=== PATIENT | male | born 1970 | race Caucasian/White ===

== ENCOUNTER 2016-07-03 13:02 | Emergency (ER) | payer MEDICAID ==
[~2016-07-03] VITALS: Ht 193 cm; Wt 126.2 kg
[~2016-07-03 13:02] MED LIST: ALOG6.25 PO; AMLO10TA2 PO; ASPI-621 PO; ATOR10TA9 PO; CLOP75TA22 PO; GLIP5TAB10 PO; IBUP-1222 PO; ISOS30TA; ISOS40TA11 PO; ISOS60TA36 PO; LISI1TAB3 PO; LISI1TAB5 PO; LISI40TA PO; METF1000 PO; METF500T4 PO; METO25TA35 PO; METO50TA3 PO; METO50TA82 PO; NITR0.4T8 SL; RANO500T2 PO
[2016-07-03] MEDS ORDERED: SODIUM CHLORIDE 0.9% 1,000ML IVBOLUS ONE (13:30)
[2016-07-03] MEDS ORDERED: ASPIRIN 81 MG TABLET CHEW PO ONE (13:30)
[2016-07-03] MEDS ORDERED: SODIUM CHLORIDE FLUSH 10ML SYR IVF ONE (13:30)
[2016-07-03 13:44] LABS: HEMOGLOBIN 15.4 g/dL (13.7-18.0)
[2016-07-03 13:56] LABS: BLOOD UREA NITROGEN 11 mg/dL (7-18)
[2016-07-03 14:06] LABS: IS PT STATUS REG ER OR PRE ER? YES
[2016-07-03 15:38] VITALS: BP 125/72
== END 2016-07-03 15:41 | disposition home or self-care (01) ==
LOC: ED 15:35
DX: R07.89 Other chest pain (principal); E11.65 Type 2 diabetes mellitus with hyperglycemia; I10 Essential (primary) hypertension; I25.110 Atherosclerotic heart disease of native coronary artery with unstable angina pectoris; Z95.5 Presence of coronary angioplasty implant and graft; Z90.49 Acquired absence of other specified parts of digestive tract
CPT/HCPCS: 36415; 71010; 80048; 82040; 83880; 84484; 85025; 93005

== ENCOUNTER 2016-08-01 13:56 | Emergency (ER) | payer MEDICAID ==
[~2016-08-01] VITALS: Ht 193 cm; Wt 131.3 kg
[2016-08-01] MEDS ORDERED: SODIUM CHLORIDE 0.9% 1,000 ML IV ONE (14:17)
[2016-08-01] MEDS ORDERED: SODIUM CHLORIDE 0.9% 1,000ML IVBOLUS ONE (14:30)
[2016-08-01] MEDS ORDERED: METOCLOPRAMIDE 5 MG/ML, 2ML IVPush ONE (14:30)
[2016-08-01] MEDS ORDERED: SODIUM CHLORIDE FLUSH 10ML SYR IVF ONE (14:30)
[2016-08-01] MEDS ORDERED: DIPHENHYDRAMINE 50 MG/ML, 1ML IVPush ONE (14:30)
[2016-08-01] MEDS ORDERED: KETOROLAC 30 MG/1 ML IVPush ONE (14:30)
[2016-08-01 15:03] LABS: ASPARTATE AMINO TRANSFERASE 17 U/L (15-37); BLOOD UREA NITROGEN 11 mg/dL (7-18)
[2016-08-01] MEDS ORDERED: DIPHENHYDRAMINE 50 MG/ML, 1ML ONE (15:42)
[2016-08-01] MEDS ORDERED: KETOROLAC 30 MG/1 ML ONE (15:42)
[2016-08-01] MEDS ORDERED: METOCLOPRAMIDE 5 MG/ML, 2ML ONE (15:42)
[2016-08-01 18:55] VITALS: BP 121/69
== END 2016-08-01 18:57 | disposition home or self-care (01) ==
LOC: ED 18:45
DX: G43.C1 Periodic headache syndromes in child or adult, intractable (principal); I10 Essential (primary) hypertension; E11.9 Type 2 diabetes mellitus without complications; Z90.49 Acquired absence of other specified parts of digestive tract; Z90.89 Acquired absence of other organs
CPT/HCPCS: 36415; 70450; 80053; 85025; 96361; 96374; 96375; 99285; J1200; J1885; J2765; J7030

== ENCOUNTER 2016-08-30 10:12 | Emergency (ER) | payer MEDICAID ==
[~2016-08-30] VITALS: Ht 193 cm; Wt 130.6 kg
[2016-08-30] MEDS ORDERED: LABETALOL 5MG/ML, 20ML ONE (11:16)
[2016-08-30] MEDS ORDERED: LABETALOL 5MG/ML, 20ML IVPush ONE (11:30)
[2016-08-30] MEDS ORDERED: SODIUM CHLORIDE FLUSH 10ML SYR IVF ONE (11:30)
[2016-08-30 12:10] LABS: BLOOD UREA NITROGEN 5 mg/dL (7-18)
[2016-08-30 12:14] LABS: IS PT STATUS REG ER OR PRE ER? YES
[2016-08-30] MEDS ORDERED: KETOROLAC 30 MG/1 ML ONE (14:13)
[2016-08-30] MEDS ORDERED: KETOROLAC 30 MG/1 ML IVPush ONE (14:30)
[2016-08-30 15:08] VITALS: BP 153/89
== END 2016-08-30 15:10 | disposition home or self-care (01) ==
LOC: ED 15:04
DX: R07.89 Other chest pain (principal); E11.9 Type 2 diabetes mellitus without complications; I11.9 Hypertensive heart disease without heart failure; G43.909 Migraine, unspecified, not intractable, without status migrainosus; I25.10 Atherosclerotic heart disease of native coronary artery without angina pectoris; Z90.49 Acquired absence of other specified parts of digestive tract; Z95.5 Presence of coronary angioplasty implant and graft; Z88.0 Allergy status to penicillin; Z88.8 Allergy status to other drugs, medicaments and biological substances
CPT/HCPCS: 36415; 71010; 80048; 82040; 84484; 85025; 85610; 85730; 93005; 96374; 96375; 99285; J1885

== ENCOUNTER 2016-10-17 20:04 | Emergency (ER) | payer MEDICAID ==
[~2016-10-17] VITALS: Ht 193 cm; Wt 126.9 kg
[2016-10-17 21:12] LABS: ASPARTATE AMINO TRANSFERASE 20 U/L (15-37); BLOOD UREA NITROGEN 14 mg/dL (7-18)
[2016-10-17 21:17] LABS: IS PT STATUS REG ER OR PRE ER? YES
[2016-10-17] MEDS ORDERED: ONDANSETRON ODT 8 MG PO ONE (21:30)
[2016-10-17 22:02] VITALS: BP 146/71
== END 2016-10-17 22:06 | disposition home or self-care (01) ==
LOC: ED 21:58
DX: R07.89 Other chest pain (principal); R00.0 Tachycardia, unspecified; E11.65 Type 2 diabetes mellitus with hyperglycemia; I10 Essential (primary) hypertension; I25.10 Atherosclerotic heart disease of native coronary artery without angina pectoris; Z90.49 Acquired absence of other specified parts of digestive tract; Z95.5 Presence of coronary angioplasty implant and graft
CPT/HCPCS: 36415; 71010; 80053; 83690; 84484; 85025; 93005; 99285; Q0162

== ENCOUNTER 2017-01-18 18:19 | Inpatient (IN) | payer MEDICAID ==
[~2017-01-18] VITALS: Ht 193 cm; Wt 127.4 kg
[~2017-01-18 18:19] MED LIST changes: -CLOP75TA22 PO; +CLOP75TA52 PO; +NITR0.4T28 SL; -NITR0.4T8 SL
[2017-01-18] MEDS ORDERED: ASPIRIN 81 MG TABLET CHEW ONE (18:43)
[2017-01-18 18:58] LABS: HEMATOCRIT 47.5 % (39.2-51.8); HEMOGLOBIN 15.8 g/dL (13.7-18.0); WHITE BLOOD COUNT 10.3 x10^3/uL (3.4-10)
[2017-01-18] MEDS ORDERED: ASPIRIN 81 MG TABLET CHEW PO ONE (19:00)
[2017-01-18 19:08] LABS: BLOOD UREA NITROGEN 15 mg/dL (7-18)
[2017-01-18 19:13] LABS: IS PT STATUS REG ER OR PRE ER? YES
[2017-01-18] MEDS ORDERED: EMPA25TA PO (19:21)
[2017-01-18] MEDS ORDERED: ONDANSETRON 2MG/ML, 2ML IVPush ONE (19:30)
[2017-01-18] MEDS ORDERED: ONDANSETRON 2MG/ML, 2ML ONE (20:11)
[2017-01-18] MEDS ORDERED: morphine SULFATE 10 MG/ML, 1ML ONE (20:11)
[2017-01-18] MEDS: MORPHINE SULFATE 4 MG/ML, 1ML IVPush PRN ×2 (20:17→22:50)
[2017-01-18] MEDS ORDERED: ENOXAPARIN 40 MG/0.4 ML SQ SCH (23:30)
[2017-01-18] MEDS ORDERED: DOCUSATE 100 MG CAPSULE PO PRN (23:30)
[2017-01-18] MEDS ORDERED: NITROGLYCERIN 0.4 MG/SPRAY SL PRN (23:30)
[2017-01-18] MEDS ORDERED: ONDANSETRON 2MG/ML, 2ML IVPush PRN (23:30)
[2017-01-18] MEDS ORDERED: POLYETHYLENE GLYCOL 17 GM PACKET PO PRN (23:30)
[2017-01-18] MEDS ORDERED: BISACODYL 10 MG SUPP PR PRN (23:30)
[2017-01-18] MEDS ORDERED: ACETAMINOPHEN 325 MG TABLET PO PRN (23:30)
[2017-01-19 00:01] VITALS: BP 126/83
[2017-01-19 01:20] VITALS: BP 125/77
[2017-01-19] MEDS: NITROGLYCERIN 0.4 MG BOTTLE (25 TABS) SL PRN ×2 (01:32→01:37)
[2017-01-19 01:33] LABS: IS PT STATUS REG ER OR PRE ER? NO
[2017-01-19 01:34] VITALS: BP 125/83
[2017-01-19 01:41] VITALS: BP 143/86
[2017-01-19] MEDS: morphine SULFATE 10 MG/ML, 1ML IVPush PRN ×2 (01:53→05:45)
[2017-01-19 05:44] VITALS: BP 137/88
[2017-01-19 06:01] LABS: HEMATOCRIT 43.4 % (39.2-51.8); HEMOGLOBIN 14.6 g/dL (13.7-18.0); WHITE BLOOD COUNT 10.5 x10^3/uL (3.4-10)
[2017-01-19 06:05] LABS: BLOOD UREA NITROGEN 18 mg/dL (7-18)
[2017-01-19 06:15] LABS: IS PT STATUS REG ER OR PRE ER? NO
[2017-01-19 06:17] LABS: ASPARTATE AMINO TRANSFERASE 15 U/L (15-37)
[2017-01-19] MEDS ORDERED: METO-290 PO (06:43)
[2017-01-19] MEDS ORDERED: ATOR20TA9 PO (06:43)
[2017-01-19] MEDS ORDERED: LISI1TAB7 PO (06:43)
[2017-01-19] MEDS ORDERED: [UNRECOGNIZED DRUG - CODE] PO (06:43)
[2017-01-19] MEDS ORDERED: PNEUMOCOCCAL 23 VACCINE IM-VACC ONE (07:00)
[2017-01-19 07:23] VITALS: BP 117/73
[2017-01-19] MEDS ORDERED: MAALOX/HYOSCYAMINE/LIDOCAINE 45 ML BTL PO ONE (08:30)
[2017-01-19] MEDS ORDERED: HYDROCHLOROTHIAZIDE 12.5 MG CAPSULE PO SCH (09:00)
[2017-01-19] MEDS ORDERED: METOPROLOL TARTRATE 50 MG TABLET PO SCH (09:00)
[2017-01-19] MEDS ORDERED: CLOPIDOGREL 75 MG TABLET PO SCH (09:00)
[2017-01-19] MEDS ORDERED: ATORVASTATIN 10 MG TABLET PO SCH (09:00)
[2017-01-19] MEDS ORDERED: ASPIRIN 81 MG TABLET EC PO SCH (09:00)
[2017-01-19] MEDS ORDERED: ISOSORBIDE MONONITRATE ER 60 MG TABLET PO SCH (09:00)
[2017-01-19] MEDS ORDERED: LISINOPRIL 20 MG TABLET PO SCH (09:00)
== END 2017-01-19 10:52 | disposition home or self-care (01) | DRG 313 ==
LOC: ED 19:49 → EDIP 21:20 → 5SO 23:45
PROVIDERS: ADMIT Internal Medicine; ATTEND Internal Medicine
DX: R07.9 Chest pain, unspecified (principal); I25.10 Atherosclerotic heart disease of native coronary artery without angina pectoris; E11.65 Type 2 diabetes mellitus with hyperglycemia; I10 Essential (primary) hypertension; G35 Multiple sclerosis; G43.909 Migraine, unspecified, not intractable, without status migrainosus; E78.5 Hyperlipidemia, unspecified; G43.109 Migraine with aura, not intractable, without status migrainosus; Z95.5 Presence of coronary angioplasty implant and graft; Z82.49 Family history of ischemic heart disease and other diseases of the circulatory system
CPT/HCPCS: 36415; 71020; 80048; 80053; 82040; 83735; 83880; 84443; 84484; 85025; 93005; 96374; J1650; J2405; J2270

== ENCOUNTER 2017-02-01 14:31 | Inpatient (IN) | payer MEDICAID ==
[~2017-02-01] VITALS: Ht 193 cm; Wt 129.0 kg
[~2017-02-01 14:31] MED LIST changes: +ATOR20TA9 PO; +EMPA25TA PO; +GLYB5TAB3 PO; +LISI1TAB7 PO; +METO-290 PO; +[UNRECOGNIZED DRUG - CODE] PO
[2017-02-01] MEDS ORDERED: METOPROLOL 1 MG/ML, 5ML IVPush PRN (18:00)
[2017-02-01] MEDS ORDERED: SODIUM CHLORIDE FLUSH 10ML SYR IVF ONE (18:00)
[2017-02-01] MEDS ORDERED: METOPROLOL 1 MG/ML, 5ML ONE (18:31)
[2017-02-01 18:42] LABS: BLOOD UREA NITROGEN 11 mg/dL (7-18)
[2017-02-01 18:47] LABS: IS PT STATUS REG ER OR PRE ER? YES
[2017-02-01 19:07] LABS: HEMATOCRIT 47.4 % (39.2-51.8); HEMOGLOBIN 15.9 g/dL (13.7-18.0); WHITE BLOOD COUNT 10.2 x10^3/uL (3.4-10)
[2017-02-01] MEDS ORDERED: NITROGLYCERIN 0.4 MG BOTTLE (25 TABS) SL PRN ×2 (20:00→22:30)
[2017-02-01] MEDS ORDERED: morphine SULFATE 10 MG/ML, 1ML IVPush PRN (20:00)
[2017-02-01] MEDS ORDERED: TEMAZEPAM 15 MG CAPSULE PO PRN (20:00)
[2017-02-01] MEDS ORDERED: LABETALOL 5MG/ML, 20ML IVPush PRN (20:00)
[2017-02-01] MEDS ORDERED: ONDANSETRON 2MG/ML, 2ML IVPush PRN (20:00)
[2017-02-01] MEDS ORDERED: predniSONE 50MG TABLET PO ONE (20:30)
[2017-02-01] MEDS ORDERED: DIPHENHYDRAMINE 50 MG/ML, 1ML IVPush ONE (20:30)
[2017-02-01] MEDS ORDERED: DIPHENHYDRAMINE 50 MG CAPSULE PO ONE (21:00)
[2017-02-01] MEDS ORDERED: DIPHENHYDRAMINE 50 MG/ML, 1ML ONE (21:57)
[2017-02-01] MEDS ORDERED: ATORVASTATIN 20 MG TABLET PO SCH (22:30)
[2017-02-01 23:13] VITALS: BP 141/87
[2017-02-02 01:04] VITALS: BP 120/81
[2017-02-02 01:23] LABS: IS PT STATUS REG ER OR PRE ER? NO
[2017-02-02] MEDS ORDERED: predniSONE 50MG TABLET PO ONE ×2 (02:30→08:00)
[2017-02-02 07:26] LABS: IS PT STATUS REG ER OR PRE ER? NO
[2017-02-02] MEDS ORDERED: SODIUM CHLORIDE 0.9% 1,000 ML IV ONE (07:43)
[2017-02-02] MEDS ORDERED: DIPHENHYDRAMINE 50 MG/ML, 1ML IVPush ONE (08:00)
[2017-02-02 08:13] VITALS: BP 135/82
[2017-02-02] MEDS ORDERED: MIDAZOLAM 1 MG/ML, 5ML ONE (08:35)
[2017-02-02] MEDS ORDERED: FENTANYL PF 100 MCG/2ML ONE (08:35)
[2017-02-02] MEDS ORDERED: TICAGRELOR 90 MG TABLET ONE (08:35)
[2017-02-02] MEDS ORDERED: BIVALIRUDIN 250 MG ONE (08:36)
[2017-02-02] MEDS ORDERED: LIDOCAINE 2%, 20ML ONE (08:36)
[2017-02-02] MEDS ORDERED: VERAPAMIL 2.5 MG/ML, 2ML ONE (08:36)
[2017-02-02] MEDS ORDERED: HEPARIN 1,000 UNITS/ML, 10ML ONE (08:36)
[2017-02-02] MEDS ORDERED: DIPHENHYDRAMINE 50 MG/ML, 1ML ONE (08:49)
[2017-02-02] MEDS ORDERED: ISOSORBIDE MONONITRATE ER 60 MG TABLET PO SCH (09:00)
[2017-02-02] MEDS ORDERED: HYDROCHLOROTHIAZIDE 25 MG TABLET PO SCH (09:00)
[2017-02-02] MEDS ORDERED: METOPROLOL SUCCINATE 100 MG TAB.ER.24H PO SCH (09:00)
[2017-02-02] MEDS ORDERED: CLOPIDOGREL 75 MG TABLET PO SCH (09:00)
[2017-02-02] MEDS ORDERED: GlyBURIDE 5 MG TABLET PO SCH (09:00)
[2017-02-02] MEDS ORDERED: ASPIRIN 81 MG TABLET EC PO SCH (09:00)
[2017-02-02] MEDS ORDERED: LISINOPRIL 20 MG TABLET PO SCH (09:00)
[2017-02-02] MEDS ORDERED: SODIUM CHLORIDE 0.9% 1,000 ML IV SCH (11:00)
[2017-02-02 14:30] VITALS: BP 117/68
== END 2017-02-02 18:09 | disposition home or self-care (01) | DRG 287 ==
LOC: ED 17:51 → EDIP 19:12 → 5SO 20:53
PROVIDERS: ADMIT Family Medicine; ATTEND Family Medicine
PROC: 4A023N7 Measurement of Cardiac Sampling and Pressure, Left Heart, Percutaneous Approach (ICD-10-PCS; principal; 2017-02-02)
PROC: B2111ZZ Fluoroscopy of Multiple Coronary Arteries using Low Osmolar Contrast (ICD-10-PCS; 2017-02-02)
PROC: B2151ZZ Fluoroscopy of Left Heart using Low Osmolar Contrast (ICD-10-PCS; 2017-02-02)
DX: I25.110 Atherosclerotic heart disease of native coronary artery with unstable angina pectoris (principal); E66.01 Morbid (severe) obesity due to excess calories; E11.9 Type 2 diabetes mellitus without complications; E78.5 Hyperlipidemia, unspecified; I10 Essential (primary) hypertension; Z87.891 Personal history of nicotine dependence; Z91.041 Radiographic dye allergy status; Z90.49 Acquired absence of other specified parts of digestive tract; Z88.8 Allergy status to other drugs, medicaments and biological substances; Z88.0 Allergy status to penicillin; Z95.5 Presence of coronary angioplasty implant and graft; Z68.34 Body mass index [BMI] 34.0-34.9, adult
CPT/HCPCS: 36415; 71010; 80048; 82040; 84484; 85025; 93005; 93458; 96374; 96375; 99156; C1769; C1894; J0583; J1644; J2250; J3010; J3490; J1200; J2270; J7512; Q9967

== ENCOUNTER 2017-02-04 13:11 | Emergency (ER) | payer MEDICAID ==
[~2017-02-04] VITALS: Ht 193 cm; Wt 130.1 kg
[2017-02-04 13:12] VITALS: BP 164/102
== END 2017-02-04 14:05 | disposition home or self-care (01) ==
LOC: ED 13:25
DX: G89.18 Other acute postprocedural pain (principal); M79.631 Pain in right forearm
CPT/HCPCS: 93005; 99283

== ENCOUNTER 2017-06-01 12:46 | Emergency (ER) | payer MEDICAID ==
[~2017-06-01] VITALS: Ht 193 cm; Wt 130.4 kg
[~2017-06-01 12:46] MED LIST changes: -METO50TA3 PO; +METO50TA6 PO
[2017-06-01] MEDS ORDERED: METOPROLOL TARTRATE 25 MG TABLET ONE (13:45)
[2017-06-01 13:57] LABS: BASOPHILS # (AUTO) 0.04 x10^3/uL (0-0.1); BASOPHILS % (AUTO) 1 % (0-1); EOSINOPHILS # (AUTO) 0.29 x10^3/uL (0-0.4); EOSINOPHILS % (AUTO) 4 % (1-7); LYMPHOCYTES # (AUTO) 1.05 x10^3/uL (1-3.4); LYMPHOCYTES % (AUTO) 13 % (22-44); MD NO; MEAN CORPUSCULAR HEMOGLOBIN 28.5 pg (27.5-34.5); MEAN CORPUSCULAR HGB CONC 32.9 g/dL (33.2-36.2); MEAN CORPUSCULAR VOLUME 86.5 fL (81-97); MEAN PLATELET VOLUME 6.9 fL (7.4-10.4); MONOCYTES # (AUTO) 0.46 x10^3/uL (0.2-0.8); MONOCYTES % (AUTO) 6 % (2-9); NEUTROPHILS # (AUTO) 6.57 x10^3/uL (1.8-6.8); NEUTROPHILS % (AUTO) 78 % (42-75); PLATELET COUNT 275 x10^3/uL (130-400); RED BLOOD COUNT 4.98 x10^6/uL (4.38-5.82); RED CELL DISTRIBUTION WIDTH 14.4 % (9.4-14.8)
[2017-06-01] MEDS ORDERED: METOPROLOL TARTRATE 50 MG TABLET PO ONE (14:00)
[2017-06-01 14:07] LABS: ALBUMIN 3.4 g/dL (3.4-5.0); ANION GAP 7 mmol/L (5-15); CALCIUM 8.5 mg/dL (8.5-10.1); CHLORIDE 100 mmol/L (98-107); CREATININE 0.97 mg/dL (0.7-1.3)
[2017-06-01 14:49] VITALS: BP 154/90
== END 2017-06-01 14:51 | disposition home or self-care (01) ==
LOC: ED 14:45
DX: R07.9 Chest pain, unspecified (principal); I10 Essential (primary) hypertension; E11.9 Type 2 diabetes mellitus without complications; G89.29 Other chronic pain; I25.10 Atherosclerotic heart disease of native coronary artery without angina pectoris; Z88.8 Allergy status to other drugs, medicaments and biological substances; Z88.0 Allergy status to penicillin; Z90.49 Acquired absence of other specified parts of digestive tract; Z95.5 Presence of coronary angioplasty implant and graft
CPT/HCPCS: 36415; 71045; 80048; 82040; 84484; 85025; 93005; 99285

== ENCOUNTER 2017-06-02 01:05 | Emergency (ER) | payer MEDICAID ==
[~2017-06-02] VITALS: Ht 193 cm; Wt 129.4 kg
[2017-06-02 02:51] LABS: TROPONIN I < 0.015 ng/mL (0.000-0.045)
[2017-06-02 04:09] VITALS: BP 142/82
== END 2017-06-02 05:59 | disposition home or self-care (01) ==
LOC: ED 05:40
DX: F32.0 Major depressive disorder, single episode, mild (principal); Z76.5 Malingerer [conscious simulation]; E11.65 Type 2 diabetes mellitus with hyperglycemia; I10 Essential (primary) hypertension; I25.10 Atherosclerotic heart disease of native coronary artery without angina pectoris; Z95.5 Presence of coronary angioplasty implant and graft; Z90.49 Acquired absence of other specified parts of digestive tract
CPT/HCPCS: 36415; 84484; 93005; 99285

== ENCOUNTER 2018-01-03 11:24 | Observation (INO) | payer MEDICAID ==
[2018-01-03] VITALS (7 sets, daily range): BP systolic 100–125; BP diastolic 64–78
[~2018-01-03] VITALS: Ht 193 cm; Wt 75.8 kg
[~2018-01-03 11:24] MED LIST changes: -AMLO10TA2 PO; +AMLO10TA6 PO; +METF500T17 PO; -METF500T4 PO; +TICA60TA PO
[2018-01-03] MEDS ORDERED: SODIUM CHLORIDE FLUSH 10ML SYR IVF ONE (12:00)
[2018-01-03] MEDS ORDERED: MORPHINE SULFATE 4 MG/ML, 1ML IVPush PRN (12:00)
[2018-01-03] MEDS ORDERED: ASPIRIN 81 MG TABLET CHEW PO ONE (12:00)
[2018-01-03 12:11] LABS: BASOPHILS # (AUTO) 0.04 x10^3/uL (0-0.1); BASOPHILS % (AUTO) 1 % (0-1); EOSINOPHILS # (AUTO) 0.14 x10^3/uL (0-0.4); EOSINOPHILS % (AUTO) 2 % (1-7); LYMPHOCYTES # (AUTO) 2.55 x10^3/uL (1-3.4); LYMPHOCYTES % (AUTO) 31 % (22-44); MD NO; MEAN CORPUSCULAR HEMOGLOBIN 28.4 pg (27.5-34.5); MEAN CORPUSCULAR HGB CONC 33.6 g/dL (33.2-36.2); MEAN CORPUSCULAR VOLUME 84.5 fL (81-97); MEAN PLATELET VOLUME 7.3 fL (7.4-10.4); MONOCYTES # (AUTO) 0.55 x10^3/uL (0.2-0.8); MONOCYTES % (AUTO) 7 % (2-9); NEUTROPHILS # (AUTO) 4.86 x10^3/uL (1.8-6.8); NEUTROPHILS % (AUTO) 60 % (42-75); PLATELET COUNT 295 x10^3/uL (130-400); RED BLOOD COUNT 4.76 x10^6/uL (4.38-5.82); RED CELL DISTRIBUTION WIDTH 14.4 % (9.4-14.8)
[2018-01-03] MEDS ORDERED: ASPIRIN 81 MG TABLET CHEW ONE (12:12)
[2018-01-03] MEDS ORDERED: MORPHINE SULFATE 4 MG/ML, 1ML ONE (12:12)
[2018-01-03 12:24] LABS: ALBUMIN 3.3 g/dL (3.4-5.0); ANION GAP 11 mmol/L (5-15); CALCIUM 8.7 mg/dL (8.5-10.1); CHLORIDE 99 mmol/L (98-107)
[2018-01-03 12:29] LABS: CREATININE 1.05 mg/dL (0.7-1.3); INTERNATIONAL NORMALIZED RATIO 0.97 (0.93-1.1); TROPONIN I < 0.015 ng/mL (0.000-0.045)
[2018-01-03] MEDS ORDERED: NITROGLYCERIN SINGLE TAB 0.4 MG SL ONE (12:50)
[2018-01-03] MEDS: NITROGLYCERIN SINGLE TAB 0.4 MG SL PRN ×3 (12:55→13:06)
[2018-01-03] MEDS ORDERED: ISOS120T2 PO (13:56)
[2018-01-03] MEDS ORDERED: METO-95 PO (13:56)
[2018-01-03] MEDS ORDERED: FLAX10004 PO (13:56)
[2018-01-03] MEDS ORDERED: MAGN400T7 PO (13:56)
[2018-01-03] MEDS ORDERED: INSU100I13 SUBD (13:56)
[2018-01-03] MEDS ORDERED: METF500T17 PO (13:56)
[2018-01-03] MEDS ORDERED: TICA90TA PO (13:56)
[2018-01-03] MEDS ORDERED: INSU100V SQ-INSULIN (13:56)
[2018-01-03] MEDS ORDERED: DIVA500T4 PO (13:56)
[2018-01-03] MEDS ORDERED: ATOR-2 PO (13:56)
[2018-01-03] MEDS ORDERED: QUET50TA PO (13:56)
[2018-01-03] MEDS ORDERED: GLYB5TAB3 PO ×2 (13:56)
[2018-01-03] MEDS ORDERED: SODIUM CHLORIDE FLUSH 10ML SYR IVF PRN (14:00)
[2018-01-03] MEDS ORDERED: NITROGLYCERIN 0.4 MG BOTTLE (25 TABS) SL ONE (15:26)
[2018-01-03] MEDS ORDERED: NITROGLYCERIN 0.4 MG/SPRAY SL PRN (15:30)
[2018-01-03] MEDS: NITROGLYCERIN 0.4 MG BOTTLE (25 TABS) SL PRN ×6 (15:37→22:57)
[2018-01-03] MEDS ORDERED: NITROGLYCERIN 0.4 MG BOTTLE (25 TABS) SL PRN (16:00)
[2018-01-03] MEDS ORDERED: LABETALOL 5MG/ML, 20ML IVPush PRN (16:00)
[2018-01-03] MEDS ORDERED: ONDANSETRON ODT 4 MG PO PRN (16:00)
[2018-01-03] MEDS ORDERED: ACETAMINOPHEN 325 MG TABLET PO PRN (16:00)
[2018-01-03 16:59] LABS: TROPONIN I < 0.015 ng/mL (0.000-0.045)
[2018-01-03] MEDS: ENOXAPARIN 40 MG/0.4 ML SQ SCH (17:12)
[2018-01-03] MEDS: INSULIN LISPRO 100 UNITS/ML, PEN SQ-INSULIN SCH ×2 (17:13→22:25)
[2018-01-03] MEDS: MORPHINE SULFATE 4 MG/ML, 1ML IVPush PRN ×3 (17:50→23:57)
[2018-01-03] MEDS ORDERED: ATORVASTATIN 80 MG TABLET PO SCH (21:00)
[2018-01-03] MEDS ORDERED: INSULIN GLARGINE 100 UNITS/ML, PEN SQ-INSULIN SCH (21:00)
[2018-01-03] MEDS ORDERED: QUETIAPINE 25MG TABLET PO SCH (21:00)
[2018-01-03] MEDS ORDERED: QUETIAPINE 100MG TABLET ONE (22:17)
[2018-01-03 22:19] LABS: TROPONIN I < 0.015 ng/mL (0.000-0.045)
[2018-01-03] MEDS: DIVALPROEX 500 MG TAB.ER.24H PO SCH (22:24)
[2018-01-03] MEDS: TICAGRELOR 90 MG TABLET PO SCH (22:24)
[2018-01-04 00:25] VITALS: BP 106/68
[2018-01-04 05:16] LABS: BASOPHILS # (AUTO) 0.03 x10^3/uL (0-0.1); BASOPHILS % (AUTO) 0 % (0-1); EOSINOPHILS # (AUTO) 0.19 x10^3/uL (0-0.4); EOSINOPHILS % (AUTO) 3 % (1-7); LYMPHOCYTES # (AUTO) 2.37 x10^3/uL (1-3.4); LYMPHOCYTES % (AUTO) 32 % (22-44); MD NO; MEAN CORPUSCULAR HGB CONC 33.8 g/dL (33.2-36.2); MEAN CORPUSCULAR VOLUME 85.6 fL (81-97); MEAN PLATELET VOLUME 7.2 fL (7.4-10.4); MONOCYTES # (AUTO) 0.58 x10^3/uL (0.2-0.8); MONOCYTES % (AUTO) 8 % (2-9); NEUTROPHILS # (AUTO) 4.27 x10^3/uL (1.8-6.8); NEUTROPHILS % (AUTO) 57 % (42-75); PLATELET COUNT 237 x10^3/uL (130-400); RED BLOOD COUNT 4.46 x10^6/uL (4.38-5.82); RED CELL DISTRIBUTION WIDTH 14.5 % (9.4-14.8)
[2018-01-04 05:30] LABS: CHLORIDE 98 mmol/L (98-107)
[2018-01-04 05:44] LABS: ANION GAP 12 mmol/L (5-15); CALCIUM 8.8 mg/dL (8.5-10.1)
[2018-01-04 05:45] LABS: ALANINE AMINOTRANSFERASE 27 U/L (12-78); ALKALINE PHOSPHATASE 69 U/L (45-117); BILIRUBIN,TOTAL 0.5 mg/dL (0.2-1.0); CHOL/HDL RATIO 5.1; CHOLESTEROL, TOTAL 149 mg/dL (140-239); HDL CHOL % 19 % (26-37); HDL CHOLESTEROL (DIRECT) 29 mg/dL (40-60); LDL CHOLESTEROL,CALCULATED 60 mg/dL (54-169); LDL/HDL RATIO 2.1 (0.5-3.0); TOTAL PROTEIN 6.1 g/dL (6.4-8.2); TRIGLYCERIDES 300 mg/dL (50-200); VLDL CHOLESTEROL 60 mg/dL (0-25)
[2018-01-04] MEDS ORDERED: ASPIRIN 325 MG TABLET EC PO SCH (06:00)
[2018-01-04 07:04] VITALS: BP 104/70
[2018-01-04] MEDS: TICAGRELOR 90 MG TABLET PO SCH (08:13)
[2018-01-04] MEDS: DIVALPROEX 500 MG TAB.ER.24H PO SCH (08:14)
[2018-01-04] MEDS: INSULIN LISPRO 100 UNITS/ML, PEN SQ-INSULIN SCH ×3 (08:18→16:42)
[2018-01-04] MEDS ORDERED: REGADENOSON 0.4 MG/5 ML SYRINGE ONE (08:45)
[2018-01-04] MEDS ORDERED: METOPROLOL SUCCINATE 100 MG TAB.ER.24H PO SCH (09:00)
[2018-01-04] MEDS ORDERED: ASPIRIN 81 MG TABLET EC PO SCH (09:00)
[2018-01-04] MEDS ORDERED: MAGNESIUM OXIDE 400 MG TABLET PO SCH (09:00)
[2018-01-04] MEDS ORDERED: LISINOPRIL 20 MG TABLET PO SCH (09:00)
[2018-01-04] MEDS ORDERED: ISOSORBIDE MONONITRATE ER 60 MG TABLET PO SCH (09:00)
[2018-01-04] MEDS ORDERED: HYDROCHLOROTHIAZIDE 25 MG TABLET PO SCH (09:00)
[2018-01-04] MEDS ORDERED: MAGNESIUM SULFATE PMX 2GM/50ML 50 ML IV ONE (10:00)
[2018-01-04 10:56] VITALS: BP 121/78
[2018-01-04] MEDS: MORPHINE SULFATE 4 MG/ML, 1ML IVPush PRN ×2 (11:16→14:55)
[2018-01-04 13:03] VITALS: BP 118/79
[2018-01-04] MEDS: ENOXAPARIN 40 MG/0.4 ML SQ SCH (16:21)
== END 2018-01-04 18:40 | disposition home or self-care (01) ==
LOC: ED 13:34 → EDIP 13:35 → INTOOBSV 13:35 → ED 14:00 → 5SO 14:43
PROVIDERS: ADMIT Internal Medicine; ATTEND Internal Medicine
DX: R07.89 Other chest pain (principal); E87.1 Hypo-osmolality and hyponatremia; I10 Essential (primary) hypertension; E78.5 Hyperlipidemia, unspecified; E11.65 Type 2 diabetes mellitus with hyperglycemia; I25.10 Atherosclerotic heart disease of native coronary artery without angina pectoris; E66.01 Morbid (severe) obesity due to excess calories; Z68.20 Body mass index [BMI] 20.0-20.9, adult; Z98.1 Arthrodesis status; Z90.49 Acquired absence of other specified parts of digestive tract; Z88.2 Allergy status to sulfonamides; Z88.8 Allergy status to other drugs, medicaments and biological substances; Z88.6 Allergy status to analgesic agent; Z95.5 Presence of coronary angioplasty implant and graft; Z91.041 Radiographic dye allergy status; Z88.0 Allergy status to penicillin; Z91.013 Allergy to seafood
CPT/HCPCS: 36415; 71045; 78452; 80048; 80053; 80061; 82040; 82962; 83735; 83880; 84100; 84484; 85025; 85610; 93005; 93017; 96365; 96366; 96372; 96375; 96376; 99285; A9502; C9898; G0378; J1815; J2785; J3475; 96374

== ENCOUNTER 2018-01-07 19:04 | Emergency (ER) | payer MEDICAID ==
[~2018-01-07] VITALS: Ht 193 cm; Wt 135.0 kg
[~2018-01-07 19:04] MED LIST changes: +ATOR-2 PO; +DIVA500T4 PO; +FLAX10004 PO; +INSU100I13 SUBD; +INSU100V SQ-INSULIN; +ISOS120T2 PO; +MAGN400T7 PO; +METO-95 PO; +QUET50TA PO; +TICA90TA PO
[2018-01-07] MEDS ORDERED: ASPIRIN 81 MG TABLET CHEW PO ONE (19:30)
[2018-01-07] MEDS ORDERED: SODIUM CHLORIDE FLUSH 10ML SYR IVF ONE (19:30)
[2018-01-07 19:50] LABS: ALBUMIN 3.5 g/dL (3.4-5.0); ANION GAP 13 mmol/L (5-15); CALCIUM 8.7 mg/dL (8.5-10.1); CHLORIDE 101 mmol/L (98-107)
[2018-01-07 19:52] LABS: ALANINE AMINOTRANSFERASE 36 U/L (12-78); ALKALINE PHOSPHATASE 80 U/L (45-117); BILIRUBIN,TOTAL 0.4 mg/dL (0.2-1.0); CREATININE 1.06 mg/dL (0.7-1.3); TOTAL PROTEIN 7.3 g/dL (6.4-8.2); TROPONIN I < 0.015 ng/mL (0.000-0.045)
[2018-01-07] MEDS ORDERED: ASPIRIN 81 MG TABLET CHEW ONE (20:20)
[2018-01-07 20:23] LABS: BASOPHILS # (AUTO) 0.04 x10^3/uL (0-0.1); BASOPHILS % (AUTO) 1 % (0-1); EOSINOPHILS # (AUTO) 0.14 x10^3/uL (0-0.4); EOSINOPHILS % (AUTO) 2 % (1-7); LYMPHOCYTES # (AUTO) 2.08 x10^3/uL (1-3.4); LYMPHOCYTES % (AUTO) 28 % (22-44); MD NO; MEAN CORPUSCULAR HEMOGLOBIN 28.6 pg (27.5-34.5); MEAN CORPUSCULAR HGB CONC 34.3 g/dL (33.2-36.2); MEAN CORPUSCULAR VOLUME 83.2 fL (81-97); MEAN PLATELET VOLUME 7.5 fL (7.4-10.4); MONOCYTES # (AUTO) 0.38 x10^3/uL (0.2-0.8); MONOCYTES % (AUTO) 5 % (2-9); NEUTROPHILS # (AUTO) 4.69 x10^3/uL (1.8-6.8); NEUTROPHILS % (AUTO) 64 % (42-75); PLATELET COUNT 263 x10^3/uL (130-400); RED CELL DISTRIBUTION WIDTH 14.4 % (9.4-14.8)
[2018-01-07 22:48] LABS: TROPONIN I < 0.015 ng/mL (0.000-0.045)
[2018-01-07 22:55] VITALS: BP 118/76
[2018-01-08] MEDS ORDERED: METO200T47 PO (13:35)
[2018-01-08] MEDS ORDERED: LISI1TAB7 PO (13:35)
[2018-01-08] MEDS ORDERED: GLYB5TAB3 PO (13:35)
== END 2018-01-07 23:23 | disposition home or self-care (01) ==
LOC: ED 21:20
DX: I20.0 Unstable angina (principal); I10 Essential (primary) hypertension; E11.9 Type 2 diabetes mellitus without complications; G43.909 Migraine, unspecified, not intractable, without status migrainosus; I25.10 Atherosclerotic heart disease of native coronary artery without angina pectoris
CPT/HCPCS: 36415; 71045; 80053; 83880; 84484; 85025; 93005; 99285

== ENCOUNTER 2018-01-08 12:52 | Emergency (ER) | payer MEDICAID ==
[~2018-01-08] VITALS: Ht 193 cm; Wt 131.8 kg
[2018-01-08] MEDS ORDERED: ASPIRIN 81 MG TABLET CHEW PO ONE (13:30)
[2018-01-08] MEDS ORDERED: GLYB5TAB3 PO (13:35)
[2018-01-08] MEDS ORDERED: LISI1TAB7 PO (13:35)
[2018-01-08] MEDS ORDERED: METO200T47 PO (13:35)
[2018-01-08] MEDS ORDERED: ASPIRIN 81 MG TABLET EC ONE (13:36)
[2018-01-08] MEDS ORDERED: ASPIRIN 81 MG TABLET CHEW ONE (13:37)
[2018-01-08 13:55] LABS: ANION GAP 8 mmol/L (5-15); CALCIUM 8.8 mg/dL (8.5-10.1); CHLORIDE 104 mmol/L (98-107); CREATININE 1.01 mg/dL (0.7-1.3)
[2018-01-08 13:56] LABS: ALANINE AMINOTRANSFERASE 42 U/L (12-78); ALBUMIN 3.6 g/dL (3.4-5.0)
[2018-01-08 14:00] LABS: ALKALINE PHOSPHATASE 70 U/L (45-117); BILIRUBIN,TOTAL 0.5 mg/dL (0.2-1.0); TOTAL PROTEIN 7.2 g/dL (6.4-8.2); TROPONIN I < 0.015 ng/mL (0.000-0.045)
[2018-01-08 14:48] LABS: BASOPHILS # (AUTO) 0.04 x10^3/uL (0-0.1); BASOPHILS % (AUTO) 1 % (0-1); EOSINOPHILS # (AUTO) 0.12 x10^3/uL (0-0.4); EOSINOPHILS % (AUTO) 2 % (1-7); LYMPHOCYTES # (AUTO) 1.81 x10^3/uL (1-3.4); LYMPHOCYTES % (AUTO) 27 % (22-44); MD NO; MEAN CORPUSCULAR HEMOGLOBIN 28.3 pg (27.5-34.5); MEAN CORPUSCULAR HGB CONC 33.6 g/dL (33.2-36.2); MEAN CORPUSCULAR VOLUME 84.2 fL (81-97); MEAN PLATELET VOLUME 6.9 fL (7.4-10.4); MONOCYTES % (AUTO) 8 % (2-9); NEUTROPHILS # (AUTO) 4.21 x10^3/uL (1.8-6.8); NEUTROPHILS % (AUTO) 63 % (42-75); PLATELET COUNT 319 x10^3/uL (130-400); RED BLOOD COUNT 4.71 x10^6/uL (4.38-5.82); RED CELL DISTRIBUTION WIDTH 14.4 % (9.4-14.8)
[2018-01-08 14:50] LABS: INTERNATIONAL NORMALIZED RATIO 1.02 (0.93-1.1); PROTHROMBIN TIME 10.5 Seconds (9.6-11.5)
[2018-01-08] MEDS ORDERED: OXYcodone/APAP 10/325MG TABLET ONE (17:18)
[2018-01-08] MEDS ORDERED: OXYcodone/APAP 10/325MG TABLET PO ONE (18:00)
[2018-01-08 18:24] LABS: TROPONIN I < 0.015 ng/mL (0.000-0.045)
[2018-01-08 18:55] VITALS: BP 114/72
== END 2018-01-08 18:57 | disposition home or self-care (01) ==
LOC: ED 15:14
DX: R07.89 Other chest pain (principal); I10 Essential (primary) hypertension; E11.9 Type 2 diabetes mellitus without complications; G89.29 Other chronic pain; Z90.89 Acquired absence of other organs; Z90.49 Acquired absence of other specified parts of digestive tract; Z98.61 Coronary angioplasty status; Z88.0 Allergy status to penicillin; Z88.6 Allergy status to analgesic agent; Z88.8 Allergy status to other drugs, medicaments and biological substances; Z91.013 Allergy to seafood
CPT/HCPCS: 36415; 71045; 80053; 84484; 85025; 85610; 85730; 93005; 99285

== ENCOUNTER 2018-01-14 17:50 | Emergency (ER) | payer MEDICAID ==
[~2018-01-14] VITALS: Ht 193 cm; Wt 135.7 kg
[~2018-01-14 17:50] MED LIST changes: +METO200T47 PO
[2018-01-14] MEDS ORDERED: METO-99 PO (18:26)
[2018-01-14 18:46] LABS: ALBUMIN 3.3 g/dL (3.4-5.0); ANION GAP 7 mmol/L (5-15); CALCIUM 8.8 mg/dL (8.5-10.1); CHLORIDE 103 mmol/L (98-107); CREATININE 0.91 mg/dL (0.7-1.3)
[2018-01-14 19:03] VITALS: BP 125/87
== END 2018-01-14 19:06 | disposition home or self-care (01) ==
LOC: ED 18:14
DX: R60.0 Localized edema (principal); E11.65 Type 2 diabetes mellitus with hyperglycemia; I11.9 Hypertensive heart disease without heart failure; I25.10 Atherosclerotic heart disease of native coronary artery without angina pectoris; Z90.89 Acquired absence of other organs; Z90.49 Acquired absence of other specified parts of digestive tract; Z98.61 Coronary angioplasty status
CPT/HCPCS: 36415; 71045; 80048; 82040; 93005; 99285

== ENCOUNTER 2018-02-05 14:26 | Emergency (ER) | payer MEDICAID ==
[~2018-02-05] VITALS: Ht 193 cm; Wt 134.0 kg
[~2018-02-05 14:26] MED LIST changes: +METO-99 PO
[2018-02-05 14:29] VITALS: BP 154/79
[2018-02-05] MEDS ORDERED: HYDROcodone/APAP 5/325 TABLET ONE (15:29)
[2018-02-05] MEDS ORDERED: HYDROcodone/APAP 5/325 TABLET PO ONE (15:30)
== END 2018-02-05 15:43 | disposition home or self-care (01) ==
LOC: ED 15:10
DX: K02.9 Dental caries, unspecified (principal); I25.10 Atherosclerotic heart disease of native coronary artery without angina pectoris; I11.9 Hypertensive heart disease without heart failure; E11.9 Type 2 diabetes mellitus without complications; G43.909 Migraine, unspecified, not intractable, without status migrainosus; Z90.49 Acquired absence of other specified parts of digestive tract
CPT/HCPCS: 99283

== ENCOUNTER 2018-02-06 16:37 | Emergency (ER) | payer MEDICAID ==
[~2018-02-06] VITALS: Ht 193 cm; Wt 134.9 kg
[2018-02-06 16:39] VITALS: BP 171/110
[2018-02-06] MEDS ORDERED: SODIUM CHLORIDE FLUSH 10ML SYR IVF ONE (17:00)
[2018-02-06 17:09] LABS: BASOPHILS # (AUTO) 0.04 x10^3/uL (0-0.1); BASOPHILS % (AUTO) 1 % (0-1); EOSINOPHILS # (AUTO) 0.24 x10^3/uL (0-0.4); EOSINOPHILS % (AUTO) 3 % (1-7); LYMPHOCYTES # (AUTO) 2.16 x10^3/uL (1-3.4); LYMPHOCYTES % (AUTO) 27 % (22-44); MD NO; MEAN CORPUSCULAR HEMOGLOBIN 28.9 pg (27.5-34.5); MEAN CORPUSCULAR HGB CONC 34.4 g/dL (33.2-36.2); MEAN CORPUSCULAR VOLUME 84.2 fL (81-97); MEAN PLATELET VOLUME 6.9 fL (7.4-10.4); MONOCYTES # (AUTO) 0.63 x10^3/uL (0.2-0.8); MONOCYTES % (AUTO) 8 % (2-9); NEUTROPHILS # (AUTO) 4.82 x10^3/uL (1.8-6.8); NEUTROPHILS % (AUTO) 61 % (42-75); PLATELET COUNT 275 x10^3/uL (130-400); RED BLOOD COUNT 4.98 x10^6/uL (4.38-5.82); RED CELL DISTRIBUTION WIDTH 14.9 % (9.4-14.8)
[2018-02-06 17:23] LABS: ALBUMIN 3.5 g/dL (3.4-5.0); ANION GAP 13 mmol/L (5-15); CALCIUM 8.8 mg/dL (8.5-10.1); CHLORIDE 98 mmol/L (98-107); CREATININE 0.98 mg/dL (0.7-1.3)
[2018-02-06 17:27] LABS: TROPONIN I < 0.015 ng/mL (0.000-0.045)
== END 2018-02-06 18:06 | disposition home or self-care (01) ==
LOC: ED 18:00
DX: R94.31 Abnormal electrocardiogram [ECG] [EKG] (principal); E11.9 Type 2 diabetes mellitus without complications; I10 Essential (primary) hypertension; I25.10 Atherosclerotic heart disease of native coronary artery without angina pectoris; F32.9 Major depressive disorder, single episode, unspecified; Z90.89 Acquired absence of other organs; R00.0 Tachycardia, unspecified
CPT/HCPCS: 36415; 71045; 80048; 82040; 84484; 85025; 93005; 99285

== ENCOUNTER 2018-03-10 21:15 | Observation (INO) | payer MEDICAID ==
[~2018-03-10] VITALS: Ht 193 cm; Wt 133.7 kg
[~2018-03-10 21:15] MED LIST changes: -ASPI-621 PO; +ASPI81TA45 PO; +ATOR20TA37 PO; -ATOR20TA9 PO
[2018-03-10] MEDS ORDERED: ASPIRIN 81 MG TABLET CHEW PO ONE (22:00)
[2018-03-10 22:16] LABS: MICROSCOPIC NOT IND
[2018-03-10 22:26] LABS: CULTURE INDICATED? NO
[2018-03-10 22:33] LABS: BASOPHILS # (AUTO) 0.01 x10^3/uL (0-0.1); BASOPHILS % (AUTO) 0 % (0-1); EOSINOPHILS # (AUTO) 0.18 x10^3/uL (0-0.4); EOSINOPHILS % (AUTO) 2 % (1-7); LYMPHOCYTES # (AUTO) 2.29 x10^3/uL (1-3.4); LYMPHOCYTES % (AUTO) 29 % (22-44); MD NO; MEAN CORPUSCULAR HGB CONC 33.9 g/dL (33.2-36.2); MEAN CORPUSCULAR VOLUME 85.5 fL (81-97); MEAN PLATELET VOLUME 6.9 fL (7.4-10.4); MONOCYTES # (AUTO) 0.42 x10^3/uL (0.2-0.8); MONOCYTES % (AUTO) 5 % (2-9); NEUTROPHILS # (AUTO) 4.89 x10^3/uL (1.8-6.8); NEUTROPHILS % (AUTO) 63 % (42-75); PLATELET COUNT 311 x10^3/uL (130-400); RED BLOOD COUNT 4.72 x10^6/uL (4.38-5.82); RED CELL DISTRIBUTION WIDTH 14.7 % (9.4-14.8)
[2018-03-10] MEDS ORDERED: ASPIRIN 81 MG TABLET CHEW ONE (22:45)
[2018-03-10 22:58] LABS: ALBUMIN 3.6 g/dL (3.4-5.0)
[2018-03-10 23:20] LABS: ANION GAP 10 mmol/L (5-15); CHLORIDE 96 mmol/L (98-107); CREATININE 1.17 mg/dL (0.7-1.3); TROPONIN I < 0.015 ng/mL (0.000-0.045)
[2018-03-11] MEDS ORDERED: hydrALAzine 20 MG/ML, 1ML IVPush PRN (00:30)
[2018-03-11] MEDS ORDERED: morphine SULFATE 10 MG/ML, 1ML IVPush PRN (00:30)
[2018-03-11] MEDS ORDERED: ACETAMINOPHEN 325 MG TABLET PO PRN (00:30)
[2018-03-11] MEDS ORDERED: POLYETHYLENE GLYCOL 17 GM PACKET PO PRN (00:30)
[2018-03-11] MEDS ORDERED: ONDANSETRON ODT 4 MG PO PRN (00:30)
[2018-03-11] MEDS ORDERED: LABETALOL 5MG/ML, 20ML IVPush PRN (00:30)
[2018-03-11] MEDS ORDERED: PROMETHAZINE 25 MG/ML, 1ML IM PRN (00:30)
[2018-03-11] MEDS ORDERED: BISACODYL 10 MG SUPP PR PRN (00:30)
[2018-03-11] MEDS ORDERED: GABAPENTIN 300 MG CAPSULE PO PRN (00:30)
[2018-03-11] MEDS ORDERED: DOCUSATE 100 MG CAPSULE PO PRN (00:30)
[2018-03-11] MEDS ORDERED: ONDANSETRON 2MG/ML, 2ML IVPush PRN (00:30)
[2018-03-11 00:54] VITALS: BP 120/82
[2018-03-11] MEDS ORDERED: GlyBURIDE 5 MG TABLET PO SCH ×2 (01:00→09:00)
[2018-03-11] MEDS ORDERED: INSULIN GLARGINE 100 UNITS/ML, PEN SQ-INSULIN SCH (01:00)
[2018-03-11] MEDS ORDERED: ATORVASTATIN 80 MG TABLET PO SCH (01:00)
[2018-03-11] MEDS ORDERED: QUETIAPINE 25MG TABLET PO SCH (01:30)
[2018-03-11] MEDS: NITROGLYCERIN 0.4 MG BOTTLE (25 TABS) SL PRN ×2 (01:33→03:27)
[2018-03-11 01:36] LABS: FREE T4 (FREE THYROXINE) 1.13 ng/dL (0.76-1.46); THYROID STIMULATING HORMONE 3.54 mIU/L (0.358-3.740)
[2018-03-11] MEDS: INSULIN LISPRO 100 UNITS/ML, PEN SQ-INSULIN SCH ×3 (01:41→12:29)
[2018-03-11 01:59] VITALS: BP 120/82
[2018-03-11 03:57] LABS: TROPONIN I < 0.015 ng/mL (0.000-0.045)
[2018-03-11] MEDS ORDERED: ASPIRIN 325 MG TABLET EC PO SCH (06:00)
[2018-03-11 07:13] VITALS: BP 114/72
[2018-03-11] MEDS ORDERED: METOPROLOL TARTRATE 100 MG TABLET PO SCH (09:00)
[2018-03-11] MEDS ORDERED: MAGNESIUM OXIDE 400 MG TABLET PO SCH (09:00)
[2018-03-11] MEDS ORDERED: MULTIVITAMINS/MINERALS TABLET PO SCH (09:00)
[2018-03-11] MEDS ORDERED: HYDROCHLOROTHIAZIDE 25 MG TABLET PO SCH (09:00)
[2018-03-11] MEDS ORDERED: LISINOPRIL 20 MG TABLET PO SCH ×2 (09:00)
[2018-03-11] MEDS ORDERED: metFORMIN 500 MG TABLET PO SCH (09:00)
[2018-03-11] MEDS ORDERED: DIVALPROEX 500 MG TAB.ER.24H PO SCH (09:00)
[2018-03-11] MEDS ORDERED: TICAGRELOR 90 MG TABLET PO SCH (09:00)
[2018-03-11] MEDS ORDERED: ISOSORBIDE MONONITRATE ER 60 MG TABLET PO SCH (09:00)
[2018-03-11] MEDS ORDERED: TEMPLATE NON-FORMULARY MED. (Flaxseed Oil 1,000 MG) PO SCH (09:00)
[2018-03-11 10:00] LABS: TROPONIN I < 0.015 ng/mL (0.000-0.045)
[2018-03-11 12:33] VITALS: BP 91/56
== END 2018-03-11 13:28 | disposition home or self-care (01) ==
LOC: ED 22:25 → EDIP 23:57 → INTOOBSV 23:57 → 5SO 03-11 00:55 → DCLOUNGE 03-11 13:10
PROVIDERS: ADMIT Internal Medicine; ATTEND Internal Medicine
DX: R07.89 Other chest pain (principal); I10 Essential (primary) hypertension; E78.5 Hyperlipidemia, unspecified; E11.65 Type 2 diabetes mellitus with hyperglycemia; I25.10 Atherosclerotic heart disease of native coronary artery without angina pectoris; T50.905A Adverse effect of unspecified drugs, medicaments and biological substances, initial encounter; E66.9 Obesity, unspecified; Z79.82 Long term (current) use of aspirin; Y92.89 Other specified places as the place of occurrence of the external cause; Z95.5 Presence of coronary angioplasty implant and graft
CPT/HCPCS: 36415; 71045; 80048; 81003; 82040; 82962; 83036; 83735; 83880; 84439; 84443; 84484; 85025; 93005; 93971; 96372; 96374; 99284; G0378; J1815; J2405; 99285

== ENCOUNTER 2018-03-20 20:22 | Inpatient (IN) | payer MEDICAID ==
[~2018-03-20] VITALS: Ht 193 cm; Wt 131.6 kg
[2018-03-20 20:53] LABS: BASOPHILS % (AUTO) 1 % (0-1); EOSINOPHILS # (AUTO) 0.21 x10^3/uL (0-0.4); EOSINOPHILS % (AUTO) 2 % (1-7); LYMPHOCYTES # (AUTO) 2.65 x10^3/uL (1-3.4); LYMPHOCYTES % (AUTO) 23 % (22-44); MD NO; MEAN CORPUSCULAR HEMOGLOBIN 29.5 pg (27.5-34.5); MEAN CORPUSCULAR HGB CONC 34.1 g/dL (33.2-36.2); MEAN CORPUSCULAR VOLUME 86.4 fL (81-97); MEAN PLATELET VOLUME 7.1 fL (7.4-10.4); MONOCYTES # (AUTO) 0.47 x10^3/uL (0.2-0.8); MONOCYTES % (AUTO) 4 % (2-9); NEUTROPHILS # (AUTO) 7.95 x10^3/uL (1.8-6.8); NEUTROPHILS % (AUTO) 70 % (42-75); PLATELET COUNT 377 x10^3/uL (130-400); RED BLOOD COUNT 5.18 x10^6/uL (4.38-5.82); RED CELL DISTRIBUTION WIDTH 14.8 % (9.4-14.8)
--- NOTE | 2018-03-20 20:53 | NUR ---
PT CO L SIDED FACIAL DROOP/OCCASIONAL SLURRED SPEECH/LLE WEAKNESS X TODAY. REPORTS LAST KNOWN NORMAL LAST NIGHT. PT A&OX4; SPEECH CLEAR; +STRENGTH. L SIDED FACIAL DROOP NOTED. AIRWAY PATENT; PT MANAGING OWN SECRETIONS. PT CALM, TEXTING ON CELL PHONE AND TALKATIVE WITH STAFF. HX OF ATYPICAL MIGRAINES. BP/SPO2/ECG MONITORING IN PLACE. NSR ON MONITOR. EKG COMPLETE. FSBS RECORDED. PT TO CT.
[2018-03-20 20:58] LABS: ALBUMIN 3.8 g/dL (3.4-5.0); ANION GAP 10 mmol/L (5-15); CALCIUM 8.7 mg/dL (8.5-10.1); CHLORIDE 93 mmol/L (98-107); CREATININE 1.42 mg/dL (0.7-1.3)
[2018-03-20] MEDS ORDERED: DIPHENHYDRAMINE 50 MG/ML, 1ML ONE (21:49)
[2018-03-20] MEDS ORDERED: methylPREDNISolone SOD SUCC 125 MG/2 ML ONE (21:50)
--- NOTE | 2018-03-20 21:50 | NUR ---
POC IS CT AND MEDS. PIV ATTEMPTED X2 WO SUCCESS. DELAY IN CT.
[2018-03-20] MEDS ORDERED: OMNIPAQUE 350 MG/ML, 100ML BOTTLE ONE (22:00)
[2018-03-20] MEDS ORDERED: ASPIRIN 81 MG TABLET CHEW ONE (22:20)
[2018-03-20] MEDS ORDERED: ASPIRIN 81 MG TABLET CHEW PO ONE (22:30)
[2018-03-20] MEDS ORDERED: methylPREDNISolone SOD SUCC 125 MG/2 ML IVPush ONE (22:30)
[2018-03-20] MEDS ORDERED: DIPHENHYDRAMINE 50 MG/ML, 1ML IVPush ONE (22:30)
[2018-03-20] MEDS ORDERED: ASPIRIN 325 MG TABLET PO ONE (22:30)
--- NOTE | 2018-03-20 22:35 | NUR ---
PIV ACCESS ESTABLISHED, PT MEDICATED PER EMAR
--- NOTE | 2018-03-20 22:44 | NUR ---
PT AMBULATED STEADILY TO BATHROOM. GAIT APPEARS UNCOORDINATED, BUT STEADY. PT TO CT AT THIS TIME
[2018-03-20] MEDS: SODIUM CHLORIDE 0.9% 1,000 ML IV SCH (23:17)
--- NOTE | 2018-03-21 00:07 | NUR ---
PT SITTING UP IN [facility] NOTED. PT UPDATED TO POC (ADMIT) AND DEMONSTRATES UNDERSTANDING.
[2018-03-21] MEDS ORDERED: POLYETHYLENE GLYCOL 17 GM PACKET PO PRN (00:30)
[2018-03-21] MEDS ORDERED: BISACODYL 10 MG SUPP PR PRN (00:30)
[2018-03-21] MEDS ORDERED: ACETAMINOPHEN 325 MG TABLET PO PRN (00:30)
[2018-03-21] MEDS ORDERED: SENNA/DOCUSATE TABLET PO PRN (00:30)
[2018-03-21] MEDS ORDERED: ONDANSETRON 4 MG TABLET PO PRN (00:30)
[2018-03-21] MEDS: INSULIN GLARGINE 100 UNITS/ML, PEN SQ-INSULIN SCH ×2 (00:30→20:13)
[2018-03-21] MEDS ORDERED: NITROGLYCERIN 0.4 MG BOTTLE (25 TABS) SL PRN (00:30)
--- NOTE | 2018-03-21 00:57 | NUR ---
REPORT TO MARIA ISABEL FUENTES.
[2018-03-21 01:11] LABS: HEMOGLOBIN A1C 9.4 % (4.2-6.3)
[2018-03-21 01:12] VITALS: BP 154/82
[2018-03-21] MEDS ORDERED: ONDANSETRON ODT 4 MG PO PRN (02:00)
[2018-03-21] MEDS: ATORVASTATIN 80 MG TABLET PO SCH ×2 (02:44→19:55)
[2018-03-21] MEDS: GlyBURIDE 5 MG TABLET PO SCH ×3 (03:45→19:55)
[2018-03-21] MEDS: INSULIN LISPRO 100 UNITS/ML, PEN SQ-INSULIN SCH ×5 (03:46→20:13)
[2018-03-21] MEDS: QUETIAPINE 25MG TABLET PO SCH ×2 (03:46→19:54)
[2018-03-21] MEDS: SODIUM CHLORIDE 0.9% 1,000 ML IV SCH ×2 (04:27→12:15)
[2018-03-21 04:50] VITALS: BP 119/75
[2018-03-21 06:46] VITALS: BP 123/75
[2018-03-21] MEDS ORDERED: LISINOPRIL 20 MG TABLET PO SCH (09:00)
[2018-03-21] MEDS ORDERED: TEMPLATE NON-FORMULARY MED. (Flaxseed Oil 1,000 MG) PO SCH (09:00)
[2018-03-21] MEDS: TICAGRELOR 90 MG TABLET PO SCH ×2 (09:19→19:55)
[2018-03-21] MEDS: MAGNESIUM OXIDE 400 MG TABLET PO SCH (09:21)
[2018-03-21] MEDS: MULTIVITAMINS/MINERALS TABLET PO SCH (09:22)
[2018-03-21] MEDS: ISOSORBIDE MONONITRATE ER 60 MG TABLET PO SCH (09:22)
[2018-03-21] MEDS: metFORMIN 500 MG TABLET PO SCH ×2 (09:22→17:31)
[2018-03-21] MEDS: METOPROLOL TARTRATE 100 MG TABLET PO SCH (09:22)
[2018-03-21] MEDS: DIVALPROEX 500 MG TAB.ER.24H PO SCH ×2 (09:23→19:55)
[2018-03-21] MEDS: ASPIRIN 81 MG TABLET EC PO SCH (09:23)
[2018-03-21] MEDS: HYDROCHLOROTHIAZIDE 25 MG TABLET PO SCH ×2 (09:23→19:56)
[2018-03-21 13:39] VITALS: BP 101/65
[2018-03-21 19:53] VITALS: BP 124/74
[2018-03-21] MEDS: LISINOPRIL 20 MG TABLET PO SCH (19:55)
[2018-03-21] MEDS ORDERED: DIVALPROEX 500 MG TAB.ER.24H PO ONE (21:00)
[2018-03-21] MEDS ORDERED: INSULIN LISPRO 100 UNITS/ML, PEN SQ-INSULIN SCH (21:30)
[2018-03-22 00:03] VITALS: BP 102/59
[2018-03-22 06:05] LABS: BASOPHILS % (AUTO) 0 % (0-1); EOSINOPHILS % (AUTO) 2 % (1-7); HCT (SEDRATE) 37.3 % (39.2-51.8); LYMPHOCYTES # (AUTO) 2.83 x10^3/uL (1-3.4); LYMPHOCYTES % (AUTO) 27 % (22-44); MD NO; MEAN CORPUSCULAR HEMOGLOBIN 28.9 pg (27.5-34.5); MEAN CORPUSCULAR HGB CONC 33.7 g/dL (33.2-36.2); MEAN CORPUSCULAR VOLUME 85.5 fL (81-97); MONOCYTES # (AUTO) 0.49 x10^3/uL (0.2-0.8); MONOCYTES % (AUTO) 5 % (2-9); NEUTROPHILS % (AUTO) 66 % (42-75); PLATELET COUNT 292 x10^3/uL (130-400); RED BLOOD COUNT 4.35 x10^6/uL (4.38-5.82); RED CELL DISTRIBUTION WIDTH 14.7 % (9.4-14.8)
[2018-03-22 06:12] LABS: ANION GAP 9 mmol/L (5-15); C-REACTIVE PROTEIN, QUANT 0.76 mg/dL (0.02-0.49); CALCIUM 9.1 mg/dL (8.5-10.1); CHLORIDE 99 mmol/L (98-107); CREATININE 1.08 mg/dL (0.7-1.3)
[2018-03-22 08:05] VITALS: BP 110/70
[2018-03-22] MEDS: MULTIVITAMINS/MINERALS TABLET PO SCH (09:16)
[2018-03-22] MEDS: ASPIRIN 81 MG TABLET EC PO SCH (09:16)
[2018-03-22] MEDS: HYDROCHLOROTHIAZIDE 25 MG TABLET PO SCH (09:16)
[2018-03-22] MEDS: METOPROLOL TARTRATE 100 MG TABLET PO SCH (09:16)
[2018-03-22] MEDS: GlyBURIDE 5 MG TABLET PO SCH (09:16)
[2018-03-22] MEDS: INSULIN LISPRO 100 UNITS/ML, PEN SQ-INSULIN SCH ×2 (09:16→13:19)
[2018-03-22] MEDS: TICAGRELOR 90 MG TABLET PO SCH (09:16)
[2018-03-22] MEDS: DIVALPROEX 500 MG TAB.ER.24H PO SCH (09:16)
[2018-03-22] MEDS: metFORMIN 500 MG TABLET PO SCH (09:17)
[2018-03-22] MEDS: LISINOPRIL 20 MG TABLET PO SCH (09:17)
[2018-03-22] MEDS: MAGNESIUM OXIDE 400 MG TABLET PO SCH (09:17)
[2018-03-22] MEDS: ISOSORBIDE MONONITRATE ER 60 MG TABLET PO SCH (09:17)
[2018-03-22] MEDS ORDERED: DIVA500T4 PO (12:14)
[2018-03-22 14:02] VITALS: BP 104/64
[2018-03-23] MEDS ORDERED: ATOR40TA78 PO (19:50)
== END 2018-03-22 16:28 | disposition home or self-care (01) | DRG 103 ==
LOC: ED 21:59 → EDIP 03-21 00:21 → 4WST 03-21 02:25 → 4EST 03-21 12:34 → DCLOUNGE 03-22 16:15
PROVIDERS: ADMIT Internal Medicine; ATTEND Internal Medicine
DX: G43.909 Migraine, unspecified, not intractable, without status migrainosus (principal); E11.65 Type 2 diabetes mellitus with hyperglycemia; E66.9 Obesity, unspecified; E78.5 Hyperlipidemia, unspecified; G35 Multiple sclerosis; I10 Essential (primary) hypertension; F32.9 Major depressive disorder, single episode, unspecified; I25.10 Atherosclerotic heart disease of native coronary artery without angina pectoris; Z79.4 Long term (current) use of insulin; Z82.3 Family history of stroke; Z88.8 Allergy status to other drugs, medicaments and biological substances; Z88.0 Allergy status to penicillin; Z82.49 Family history of ischemic heart disease and other diseases of the circulatory system; Z83.3 Family history of diabetes mellitus; Z91.013 Allergy to seafood; Z95.5 Presence of coronary angioplasty implant and graft; Z90.49 Acquired absence of other specified parts of digestive tract; Z79.82 Long term (current) use of aspirin; Z79.899 Other long term (current) drug therapy; Z68.35 Body mass index [BMI] 35.0-35.9, adult
CPT/HCPCS: 36415; 70450; 70496; 70498; 70551; 80048; 82040; 82947; 82962; 83036; 85025; 85651; 86140; 93005; 96374; 96375; 99285; G0378; Q9967; J1200; J1815; J2930; J7030

== ENCOUNTER 2018-03-23 18:40 | Emergency (ER) | payer MEDICAID ==
[~2018-03-23] VITALS: Ht 193 cm; Wt 135.8 kg
--- NOTE | 2018-03-23 19:09 | NUR ---
PT PRESENTED WITH LEFT SIDE CP TAT RADIATES TO BACK, HAD HEART CATH 1 WEEK AGO [facility] WITH NO INTERVENT, PT HAS H/X OF 8 HEART STENTS. MONITORS APPLIED, PA AT BEDSIDE FOR EVAL. CALL LIGHT WITHIN REACH.
[2018-03-23] MEDS ORDERED: ASPIRIN 81 MG TABLET CHEW ONE (19:15)
[2018-03-23] MEDS ORDERED: ASPIRIN 81 MG TABLET CHEW PO ONE (19:30)
[2018-03-23] MEDS ORDERED: ATOR40TA78 PO (19:50)
[2018-03-23 20:02] LABS: ALBUMIN 3.4 g/dL (3.4-5.0); ANION GAP 8 mmol/L (5-15); CALCIUM 8.7 mg/dL (8.5-10.1); CHLORIDE 100 mmol/L (98-107); CREATININE 1.18 mg/dL (0.7-1.3)
[2018-03-23 20:05] LABS: TROPONIN I < 0.015 ng/mL (0.000-0.045)
--- NOTE | 2018-03-23 20:09 | NUR ---
Ivette salmon in EDM - 03/23/18 at 2009 by LISA MEDICATED PT FOR NAUSEA, PT WITH IMMEDIATE EPISODE OF EMESIS, RAGHAVENDRA UPDATED, NEW ORDER RECIEVED, SEE MAY.
[2018-03-23 20:19] LABS: BASOPHILS # (AUTO) 0.04 x10^3/uL (0-0.1); BASOPHILS % (AUTO) 0 % (0-1); EOSINOPHILS # (AUTO) 0.11 x10^3/uL (0-0.4); EOSINOPHILS % (AUTO) 1 % (1-7); LYMPHOCYTES # (AUTO) 2.26 x10^3/uL (1-3.4); LYMPHOCYTES % (AUTO) 27 % (22-44); MD NO; MEAN CORPUSCULAR HEMOGLOBIN 29.4 pg (27.5-34.5); MEAN CORPUSCULAR HGB CONC 34.1 g/dL (33.2-36.2); MEAN CORPUSCULAR VOLUME 86.3 fL (81-97); MEAN PLATELET VOLUME 6.8 fL (7.4-10.4); MONOCYTES # (AUTO) 0.48 x10^3/uL (0.2-0.8); MONOCYTES % (AUTO) 6 % (2-9); NEUTROPHILS # (AUTO) 5.46 x10^3/uL (1.8-6.8); NEUTROPHILS % (AUTO) 65 % (42-75); PLATELET COUNT 279 x10^3/uL (130-400); RED BLOOD COUNT 4.48 x10^6/uL (4.38-5.82); RED CELL DISTRIBUTION WIDTH 14.5 % (9.4-14.8)
[2018-03-23 20:24] VITALS: BP 145/79
== END 2018-03-23 20:41 | disposition home or self-care (01) ==
LOC: ED 20:20
DX: R07.89 Other chest pain (principal); E11.65 Type 2 diabetes mellitus with hyperglycemia; I10 Essential (primary) hypertension; G43.909 Migraine, unspecified, not intractable, without status migrainosus; I25.10 Atherosclerotic heart disease of native coronary artery without angina pectoris
CPT/HCPCS: 36415; 71046; 80048; 82040; 83880; 84484; 85025; 93005; 99284

== ENCOUNTER 2018-03-31 20:21 | Emergency (ER) | payer MEDICAID ==
[~2018-03-31 20:21] MED LIST changes: +ATOR40TA78 PO
[2018-03-31 20:34] VITALS: BP 130/91
--- NOTE | 2018-03-31 20:50 | NUR ---
SBAR report received from task RNChristiana.
[2018-03-31] MEDS ORDERED: MORPHINE SULFATE 4 MG/ML, 1ML IVPush PRN (21:00)
[2018-03-31] MEDS ORDERED: PLEASE ENTER HEIGHT AND WEIGHT MC SCH (21:00)
[2018-03-31] MEDS ORDERED: MORPHINE SULFATE 4 MG/ML, 1ML ONE (21:06)
[2018-03-31 21:11] LABS: BASOPHILS # (AUTO) 0.03 x10^3/uL (0-0.1); BASOPHILS % (AUTO) 0 % (0-1); EOSINOPHILS # (AUTO) 0.13 x10^3/uL (0-0.4); EOSINOPHILS % (AUTO) 1 % (1-7); LYMPHOCYTES # (AUTO) 2.39 x10^3/uL (1-3.4); LYMPHOCYTES % (AUTO) 23 % (22-44); MD NO; MEAN CORPUSCULAR HEMOGLOBIN 29.2 pg (27.5-34.5); MEAN CORPUSCULAR HGB CONC 33.9 g/dL (33.2-36.2); MEAN PLATELET VOLUME 7.1 fL (7.4-10.4); MONOCYTES # (AUTO) 0.66 x10^3/uL (0.2-0.8); MONOCYTES % (AUTO) 6 % (2-9); NEUTROPHILS # (AUTO) 7.26 x10^3/uL (1.8-6.8); NEUTROPHILS % (AUTO) 69 % (42-75); PLATELET COUNT 319 x10^3/uL (130-400); RED BLOOD COUNT 4.88 x10^6/uL (4.38-5.82); RED CELL DISTRIBUTION WIDTH 14.7 % (9.4-14.8)
[2018-03-31 21:17] LABS: ALANINE AMINOTRANSFERASE 35 U/L (12-78); ALBUMIN 3.5 g/dL (3.4-5.0); ANION GAP 10 mmol/L (5-15); CALCIUM 8.5 mg/dL (8.5-10.1); CHLORIDE 98 mmol/L (98-107); CREATININE 1.08 mg/dL (0.7-1.3)
[2018-03-31 21:21] LABS: ALKALINE PHOSPHATASE 128 U/L (45-117); BILIRUBIN,TOTAL 0.5 mg/dL (0.2-1.0); TOTAL PROTEIN 6.8 g/dL (6.4-8.2); TROPONIN I < 0.015 ng/mL (0.000-0.045)
== END 2018-03-31 22:15 | disposition home or self-care (01) ==
LOC: ED 20:53
DX: R07.2 Precordial pain (principal); I25.10 Atherosclerotic heart disease of native coronary artery without angina pectoris; E11.65 Type 2 diabetes mellitus with hyperglycemia; I10 Essential (primary) hypertension; G43.909 Migraine, unspecified, not intractable, without status migrainosus
CPT/HCPCS: 36415; 71045; 80053; 84484; 85025; 93005; 99284

== ENCOUNTER 2018-04-17 13:13 | Emergency (ER) | payer MEDICAID ==
[~2018-04-17] VITALS: Ht 193 cm; Wt 136.0 kg
[~2018-04-17 13:13] MED LIST changes: -AMLO10TA6 PO; +AMLO10TA8 PO; -ISOS120T2 PO; +ISOS120T4 PO
[2018-04-17 13:43] LABS: BASOPHILS # (AUTO) 0.04 x10^3/uL (0-0.1); BASOPHILS % (AUTO) 1 % (0-1); EOSINOPHILS # (AUTO) 0.19 x10^3/uL (0-0.4); EOSINOPHILS % (AUTO) 3 % (1-7); LYMPHOCYTES # (AUTO) 1.75 x10^3/uL (1-3.4); LYMPHOCYTES % (AUTO) 27 % (22-44); MD NO; MEAN CORPUSCULAR HGB CONC 34.3 g/dL (33.2-36.2); MEAN CORPUSCULAR VOLUME 84.7 fL (81-97); MEAN PLATELET VOLUME 6.8 fL (7.4-10.4); MONOCYTES % (AUTO) 8 % (2-9); NEUTROPHILS % (AUTO) 61 % (42-75); PLATELET COUNT 297 x10^3/uL (130-400); RED BLOOD COUNT 4.73 x10^6/uL (4.38-5.82); RED CELL DISTRIBUTION WIDTH 14.2 % (9.4-14.8)
[2018-04-17 13:49] LABS: ALBUMIN 3.5 g/dL (3.4-5.0); ANION GAP 9 mmol/L (5-15); CALCIUM 9.5 mg/dL (8.5-10.1); CHLORIDE 94 mmol/L (98-107); CREATININE 1.28 mg/dL (0.7-1.3)
[2018-04-17 13:53] LABS: TROPONIN I < 0.015 ng/mL (0.000-0.045)
--- NOTE | 2018-04-17 14:14 | NUR ---
PT. IS A & O X 4 WITH C/O CHEST PAIN THAT STARTED TODAY. PT.'S 12 LEAD EKG WAS DONE. PT. HAS THE CP MONITOR IN PLACE. PT.'S LUNGS ARE CTA. MM ARE PINK AND MOIST WITH PULSES +2 THROUGHOUT. PT.'S CAP REFILL IS BRISK. PT. HAS NO EDEMA PRESENT IN HIS LOWER EXTREMITIES. SIDERAILS REMAIN UP X 2 WITH THE CALL LIGHT IN PLACE.
[2018-04-17] MEDS ORDERED: HYDROcodone/APAP 5/325 TABLET ONE (14:50)
[2018-04-17] MEDS ORDERED: KETOROLAC 30 MG/1 ML ONE (14:50)
[2018-04-17] MEDS ORDERED: KETOROLAC 30 MG/1 ML IVPush ONE (15:00)
[2018-04-17] MEDS ORDERED: HYDROcodone/APAP 5/325 TABLET PO ONE (15:00)
[2018-04-17] MEDS ORDERED: KETOROLAC 30 MG/1 ML IM ONE (15:00)
[2018-04-17 16:23] LABS: TROPONIN I < 0.015 ng/mL (0.000-0.045)
--- NOTE | 2018-04-17 16:28 | NUR ---
TASK RN - PT RESTING ON [facility]. CP MONITORS IN PLACE. REPEAT TROP DRAWN, AWAITING RESULT. ALL COCNERNS ADRESSED.
--- NOTE | 2018-04-17 17:12 | NUR ---
PT. WAS GIVEN DISCHARGE INSTRUCTIONS WITH UNDERSTANDING VERBALIZED ALONG WITH WILLINGNESS TO COMPLY. PT. WAS AMBULATORY TO THE DISCHARGE DESK.
[2018-04-17 17:16] VITALS: BP 122/44
== END 2018-04-17 17:18 | disposition home or self-care (01) ==
LOC: ED 15:47
DX: R07.2 Precordial pain (principal); I11.9 Hypertensive heart disease without heart failure; E11.65 Type 2 diabetes mellitus with hyperglycemia; I25.10 Atherosclerotic heart disease of native coronary artery without angina pectoris; F32.9 Major depressive disorder, single episode, unspecified; Z86.73 Personal history of transient ischemic attack (TIA), and cerebral infarction without residual deficits; Z90.89 Acquired absence of other organs; Z90.49 Acquired absence of other specified parts of digestive tract; Z98.61 Coronary angioplasty status
CPT/HCPCS: 36415; 71045; 80048; 82040; 83880; 84484; 85025; 93005; 96372; 99284; J1885

== ENCOUNTER 2018-04-24 10:46 | Emergency (ER) | payer MEDICAID ==
[~2018-04-24] VITALS: Ht 193 cm; Wt 135.0 kg
[2018-04-24] MEDS ORDERED: LIDOCAINE 1%-EPI 1:100K, 30ML ONE (11:12)
[2018-04-24] MEDS ORDERED: LIDOCAINE 1%-EPI 1:100K, 20ML SQ ONE (11:30)
[2018-04-24 11:50] VITALS: BP 145/82
--- NOTE | 2018-04-24 11:50 | NUR ---
Patient/Caregiver given discharge instructions and they have confirmed that they understand the instructions. Patient ambulatory with steady gait. Pt. was given his prescriptions and has them in his hand.
== END 2018-04-24 11:53 | disposition home or self-care (01) ==
LOC: ED 11:29
DX: L02.31 Cutaneous abscess of buttock (principal); I25.10 Atherosclerotic heart disease of native coronary artery without angina pectoris; I10 Essential (primary) hypertension; E11.9 Type 2 diabetes mellitus without complications; I11.9 Hypertensive heart disease without heart failure; Z90.49 Acquired absence of other specified parts of digestive tract; Z86.73 Personal history of transient ischemic attack (TIA), and cerebral infarction without residual deficits; Z88.0 Allergy status to penicillin; Z88.1 Allergy status to other antibiotic agents; Z88.8 Allergy status to other drugs, medicaments and biological substances; Z72.9 Problem related to lifestyle, unspecified
CPT/HCPCS: 10060; 46040; 99283; 99284

== ENCOUNTER 2018-05-07 10:39 | Emergency (ER) | payer MEDICAID ==
[~2018-05-07] VITALS: Ht 193 cm; Wt 138.6 kg
--- NOTE | 2018-05-07 11:50 | NUR ---
PT TO ROOM FROM XRAY, C/O 12/10 CP, CRUSHING RADIATING TO L ARM. LAB AT [facility] AND EKG DONE IN TRIAGE. PT TOOK ASA THIS AM. PT PLACED ON MONITOR. NAD. [place].
[2018-05-07 12:13] LABS: BASOPHILS # (AUTO) 0.02 x10^3/uL (0-0.1); BASOPHILS % (AUTO) 0 % (0-1); EOSINOPHILS # (AUTO) 0.32 x10^3/uL (0-0.4); EOSINOPHILS % (AUTO) 4 % (1-7); LYMPHOCYTES # (AUTO) 1.24 x10^3/uL (1-3.4); LYMPHOCYTES % (AUTO) 15 % (22-44); MD NO; MEAN CORPUSCULAR HEMOGLOBIN 28.9 pg (27.5-34.5); MEAN CORPUSCULAR HGB CONC 33.8 g/dL (33.2-36.2); MEAN CORPUSCULAR VOLUME 85.4 fL (81-97); MEAN PLATELET VOLUME 7.3 fL (7.4-10.4); MONOCYTES # (AUTO) 0.61 x10^3/uL (0.2-0.8); MONOCYTES % (AUTO) 8 % (2-9); NEUTROPHILS # (AUTO) 6.01 x10^3/uL (1.8-6.8); NEUTROPHILS % (AUTO) 73 % (42-75); PLATELET COUNT 320 x10^3/uL (130-400); RED CELL DISTRIBUTION WIDTH 14.1 % (9.4-14.8)
[2018-05-07 12:24] LABS: ALBUMIN 3.4 g/dL (3.4-5.0); ANION GAP 12 mmol/L (5-15); CALCIUM 8.7 mg/dL (8.5-10.1); CHLORIDE 92 mmol/L (98-107)
[2018-05-07 12:29] LABS: CREATININE 1.37 mg/dL (0.7-1.3); TROPONIN I < 0.015 ng/mL (0.000-0.045)
[2018-05-07] MEDS ORDERED: KETOROLAC 30 MG/1 ML ONE (13:11)
[2018-05-07 13:25] LABS: INTERNATIONAL NORMALIZED RATIO 0.94 (0.93-1.1)
[2018-05-07 13:27] LABS: ALANINE AMINOTRANSFERASE 32 U/L (12-78); ALBUMIN 3.3 g/dL (3.4-5.0); BILIRUBIN, DIRECT 0.1 mg/dL (0.1-0.2)
[2018-05-07 13:30] LABS: ALKALINE PHOSPHATASE 98 U/L (45-117); BILIRUBIN,INDIRECT 0.2 mg/dL (0.0-2.0); BILIRUBIN,TOTAL 0.3 mg/dL (0.2-1.0); TOTAL PROTEIN 6.7 g/dL (6.4-8.2); TROPONIN I < 0.015 ng/mL (0.000-0.045)
[2018-05-07] MEDS ORDERED: PLEASE ENTER HEIGHT AND WEIGHT MC SCH (13:30)
[2018-05-07] MEDS ORDERED: KETOROLAC 30 MG/1 ML IM ONE (13:30)
[2018-05-07 14:43] VITALS: BP 108/67
== END 2018-05-07 14:45 | disposition home or self-care (01) ==
LOC: ED 12:22
DX: R07.89 Other chest pain (principal); E11.65 Type 2 diabetes mellitus with hyperglycemia; I10 Essential (primary) hypertension; I25.10 Atherosclerotic heart disease of native coronary artery without angina pectoris; G43.909 Migraine, unspecified, not intractable, without status migrainosus
CPT/HCPCS: 36415; 71046; 80048; 80076; 82040; 84484; 85025; 85610; 85730; 93005; 96372; 99284; J1885

== ENCOUNTER 2018-07-19 13:04 | Emergency (ER) | payer MEDICAID ==
--- NOTE | 2018-07-19 13:19 | NUR ---
CP SINCE 10AM, TOOK 3 DOSES OF NITRO & WENT TO [facility], LEFT AMA - CALLED [facility] FROM OUTSIDE. [facility] GAVE ADDITIONAL DOSE OF NITRO. STILL 11/02 CP. HX 8 STENTS, RECENT HOSPITALIZATION FOR PANCREATITIS. PT PLACED ON MONITOR, FRIEND AT BEDSIDE. CALL LIGHT WITHIN REACH
[2018-07-19 14:22] VITALS: BP 164/50
== END 2018-07-19 14:24 | disposition home or self-care (01) ==
LOC: ED 13:58
DX: R07.89 Other chest pain (principal); E11.9 Type 2 diabetes mellitus without complications; I25.10 Atherosclerotic heart disease of native coronary artery without angina pectoris
CPT/HCPCS: 36415; 84484; 93005; 99284

== ENCOUNTER 2018-09-01 17:28 | Inpatient (IN) | payer MEDICAID ==
[~2018-09-01] VITALS: Ht 193 cm; Wt 132.2 kg
[2018-09-01] MEDS ORDERED: TRAZ-137 PO (17:48)
--- NOTE | 2018-09-01 17:50 | NUR ---
pt to ed after sudden onset cp starting . pt states he was admitted to [facility] on evening and discharged today. per pt, he was discharged while still having cp. instead of waiting at [facility] ed, he decided to come to [facility] ed. pt connected to monitors. vss. edmd assessment and orders received. cxr complete. awaiting results. no needs expressed. call light within reach.
[2018-09-01] MEDS ORDERED: ONDANSETRON 2MG/ML, 2ML IVPush ONE (18:00)
[2018-09-01] MEDS ORDERED: NITROGLYCERIN SINGLE TAB 0.4 MG SL PRN ×2 (18:00→23:00)
[2018-09-01] MEDS ORDERED: SODIUM CHLORIDE FLUSH 10ML SYR IVF ONE (18:00)
[2018-09-01] MEDS ORDERED: MORPHINE SULFATE 4 MG/ML, 1ML IVPush PRN (18:00)
--- NOTE | 2018-09-01 18:12 | NUR ---
Dasia called to f/u w/ med records request. Faxed to incorrect # first time. Faxed to [phone] @ [phone].
[2018-09-01] MEDS ORDERED: NITROGLYCERIN SINGLE TAB 0.4 MG SL ONE (18:17)
[2018-09-01] MEDS ORDERED: ONDANSETRON 2MG/ML, 2ML ONE (18:17)
[2018-09-01] MEDS ORDERED: MORPHINE SULFATE 4 MG/ML, 1ML ONE (18:18)
--- NOTE | 2018-09-01 18:26 | NUR ---
pt resting in room with friend at bs. iv established and labs drawn. pt medicated for 8/10 cp per mar. after administration, pt states decrease in cp to 6/10. pt educated not to get up without assistance. call light within reach. no needs expressed. awaiting results.
[2018-09-01 18:36] LABS: INTERNATIONAL NORMALIZED RATIO 0.97 (0.93-1.1); PROTHROMBIN TIME 10.2 Seconds (9.6-11.5)
[2018-09-01 18:38] LABS: ALBUMIN 3.4 g/dL (3.4-5.0); ANION GAP 8 mmol/L (5-15); CALCIUM 8.7 mg/dL (8.5-10.1); CHLORIDE 100 mmol/L (98-107)
[2018-09-01 18:44] LABS: ALANINE AMINOTRANSFERASE 30 U/L (12-78); ALKALINE PHOSPHATASE 79 U/L (45-117); BILIRUBIN,TOTAL 0.9 mg/dL (0.2-1.0); CREATININE 1.26 mg/dL (0.7-1.3); TOTAL PROTEIN 6.4 g/dL (6.4-8.2)
--- NOTE | 2018-09-01 18:48 | NUR ---
Dasia called to f/u med. records request. Told that they were just sent.
[2018-09-01 19:05] LABS: BASOPHILS # (AUTO) 0.08 x10^3/uL (0-0.1); BASOPHILS % (AUTO) 1 % (0-1); EOSINOPHILS # (AUTO) 0.11 x10^3/uL (0-0.4); EOSINOPHILS % (AUTO) 1 % (1-7); LYMPHOCYTES # (AUTO) 1.97 x10^3/uL (1-3.4); LYMPHOCYTES % (AUTO) 23 % (22-44); MD NO; MEAN CORPUSCULAR HGB CONC 32.3 g/dL (33.2-36.2); MEAN CORPUSCULAR VOLUME 86.6 fL (81-97); MONOCYTES # (AUTO) 0.46 x10^3/uL (0.2-0.8); MONOCYTES % (AUTO) 6 % (2-9); NEUTROPHILS # (AUTO) 5.83 x10^3/uL (1.8-6.8); NEUTROPHILS % (AUTO) 69 % (42-75); PLATELET COUNT 262 x10^3/uL (130-400); RED BLOOD COUNT 4.56 x10^6/uL (4.38-5.82); RED CELL DISTRIBUTION WIDTH 14.3 % (9.4-14.8)
--- NOTE | 2018-09-01 19:12 | NUR ---
received report from MARIA ISABEL Molina.
--- NOTE | 2018-09-01 19:16 | NUR ---
ERP at bedside for re-evaluation.
[2018-09-01] MEDS ORDERED: SODIUM CHLORIDE FLUSH 10ML SYR IVF PRN (19:30)
[2018-09-01 19:31] LABS: ACETONE, SERUM Small (20mg/dL) mg/dL (Negative)
--- NOTE | 2018-09-01 19:31 | NUR ---
admission orders made. awaiting bed assignment.
[2018-09-01 19:53] LABS: HEMOGLOBIN A1C 10.5 % (4.2-6.3)
--- NOTE | 2018-09-01 19:57 | NUR ---
bed assigned. report to MARIA ISABEL Velarde.
[2018-09-01] MEDS ORDERED: Enoxaparin 1 mg/kg protocol SQ SCH (20:00)
[2018-09-01] MEDS ORDERED: ACETAMINOPHEN 325 MG TABLET PO PRN (22:00)
[2018-09-01] MEDS ORDERED: hydrALAzine 20 MG/ML, 1ML IVPush PRN (22:00)
[2018-09-01] MEDS ORDERED: DOCUSATE 100 MG CAPSULE PO PRN (22:00)
[2018-09-01] MEDS: ENOXAPARIN 150 MG/ML SQ SCH (22:23)
[2018-09-01] MEDS: morphine SULFATE 10 MG/ML, 1ML IVPush PRN (22:33)
[2018-09-01 22:43] VITALS: BP 149/81
[2018-09-01] MEDS ORDERED: INSULIN GLARGINE 100 UNITS/ML, PEN SQ-INSULIN SCH (23:00)
[2018-09-01] MEDS ORDERED: ATORVASTATIN 80 MG TABLET PO SCH (23:00)
[2018-09-01] MEDS ORDERED: LIPITOR MC SCH (23:00)
[2018-09-01] MEDS: LISINOPRIL 20 MG TABLET PO SCH (23:25)
[2018-09-01] MEDS: DIVALPROEX 500 MG TAB.ER.24H PO SCH (23:25)
[2018-09-01] MEDS: TICAGRELOR 90 MG TABLET PO SCH (23:25)
[2018-09-01] MEDS: TRAZODONE 50MG TABLET PO SCH (23:25)
[2018-09-02 01:19] VITALS: BP 116/70
[2018-09-02] MEDS: morphine SULFATE 10 MG/ML, 1ML IVPush PRN ×6 (04:02→22:39)
[2018-09-02 05:50] LABS: BASOPHILS # (AUTO) 0.04 x10^3/uL (0-0.1); BASOPHILS % (AUTO) 1 % (0-1); EOSINOPHILS # (AUTO) 0.11 x10^3/uL (0-0.4); EOSINOPHILS % (AUTO) 2 % (1-7); LYMPHOCYTES # (AUTO) 2.05 x10^3/uL (1-3.4); LYMPHOCYTES % (AUTO) 33 % (22-44); MD NO; MEAN CORPUSCULAR HEMOGLOBIN 28.4 pg (27.5-34.5); MEAN CORPUSCULAR HGB CONC 32.9 g/dL (33.2-36.2); MEAN CORPUSCULAR VOLUME 86.3 fL (81-97); MEAN PLATELET VOLUME 6.7 fL (7.4-10.4); MONOCYTES # (AUTO) 0.37 x10^3/uL (0.2-0.8); MONOCYTES % (AUTO) 6 % (2-9); NEUTROPHILS # (AUTO) 3.73 x10^3/uL (1.8-6.8); NEUTROPHILS % (AUTO) 59 % (42-75); PLATELET COUNT 237 x10^3/uL (130-400); RED BLOOD COUNT 4.25 x10^6/uL (4.38-5.82); RED CELL DISTRIBUTION WIDTH 14.6 % (9.4-14.8)
[2018-09-02 06:03] LABS: ANION GAP 6 mmol/L (5-15); CALCIUM 8.1 mg/dL (8.5-10.1); CHLORIDE 102 mmol/L (98-107); CREATININE 1.06 mg/dL (0.7-1.3)
[2018-09-02 07:26] VITALS: BP 132/86
[2018-09-02] MEDS: MULTIVITAMIN 1 TABLET PO SCH (09:04)
[2018-09-02] MEDS: LISINOPRIL 20 MG TABLET PO SCH ×2 (09:04→22:13)
[2018-09-02] MEDS: DIVALPROEX 500 MG TAB.ER.24H PO SCH ×2 (09:04→22:13)
[2018-09-02] MEDS: ASPIRIN 81 MG TABLET EC PO SCH (09:04)
[2018-09-02] MEDS: TICAGRELOR 90 MG TABLET PO SCH ×2 (09:05→22:13)
[2018-09-02] MEDS: ISOSORBIDE MONONITRATE ER 60 MG TABLET PO SCH (09:05)
[2018-09-02] MEDS: HYDROCHLOROTHIAZIDE 25 MG TABLET PO SCH ×2 (09:05→22:13)
[2018-09-02] MEDS: METOPROLOL TARTRATE 100 MG TABLET PO SCH (09:05)
[2018-09-02] MEDS: ONDANSETRON 2MG/ML, 2ML IVPush PRN (09:06)
[2018-09-02] MEDS: ENOXAPARIN 150 MG/ML SQ SCH (11:09)
[2018-09-02 12:50] VITALS: BP 114/59
[2018-09-02 19:03] VITALS: BP 132/77
[2018-09-02] MEDS: INSULIN LISPRO 100 UNITS/ML, PEN SQ-INSULIN SCH (21:00)
[2018-09-02] MEDS ORDERED: ATORVASTATIN 80 MG TABLET PO SCH (21:00)
[2018-09-02] MEDS ORDERED: INSULIN GLARGINE 100 UNITS/ML, PEN SQ-INSULIN SCH (21:00)
[2018-09-02] MEDS: TRAZODONE 50MG TABLET PO SCH (22:13)
[2018-09-02] MEDS ORDERED: INSULIN LISPRO 100 UNITS/ML, PEN SQ-INSULIN ONE (22:30)
[2018-09-03 00:52] VITALS: BP 113/68
[2018-09-03] MEDS: morphine SULFATE 10 MG/ML, 1ML IVPush PRN ×2 (01:41→05:20)
[2018-09-03] MEDS: ONDANSETRON 2MG/ML, 2ML IVPush PRN (04:40)
[2018-09-03 06:38] VITALS: BP 106/69
[2018-09-03] MEDS ORDERED: POTASSIUM CHLORIDE 20 MEQ TAB.ER.PRT PO ONE (08:00)
[2018-09-03] MEDS ORDERED: ENOXAPARIN 40 MG/0.4 ML SQ SCH (09:00)
[2018-09-03] MEDS: INSULIN LISPRO 100 UNITS/ML, PEN SQ-INSULIN SCH ×2 (09:11→11:00)
[2018-09-03] MEDS: ASPIRIN 81 MG TABLET EC PO SCH (09:13)
[2018-09-03] MEDS: HYDROCHLOROTHIAZIDE 25 MG TABLET PO SCH (09:13)
[2018-09-03] MEDS: ISOSORBIDE MONONITRATE ER 60 MG TABLET PO SCH (09:14)
[2018-09-03] MEDS: MULTIVITAMIN 1 TABLET PO SCH (09:14)
[2018-09-03] MEDS: LISINOPRIL 20 MG TABLET PO SCH (09:14)
[2018-09-03] MEDS: METOPROLOL TARTRATE 100 MG TABLET PO SCH (09:14)
[2018-09-03] MEDS: DIVALPROEX 500 MG TAB.ER.24H PO SCH (09:14)
[2018-09-03] MEDS: TICAGRELOR 90 MG TABLET PO SCH (09:15)
== END 2018-09-03 11:47 | disposition home or self-care (01) | DRG 281 ==
LOC: ED 18:58 → EDIP 19:24 → 5SO 20:15 → DCLOUNGE 09-03 11:38
PROVIDERS: ADMIT Family Medicine; ATTEND Family Medicine
DX: I21.A1 Myocardial infarction type 2 (principal); E44.0 Moderate protein-calorie malnutrition; E11.42 Type 2 diabetes mellitus with diabetic polyneuropathy; E11.51 Type 2 diabetes mellitus with diabetic peripheral angiopathy without gangrene; E11.65 Type 2 diabetes mellitus with hyperglycemia; E11.69 Type 2 diabetes mellitus with other specified complication; Z68.35 Body mass index [BMI] 35.0-35.9, adult; E66.01 Morbid (severe) obesity due to excess calories; E78.5 Hyperlipidemia, unspecified; E87.6 Hypokalemia; G35 Multiple sclerosis; G47.00 Insomnia, unspecified; G89.29 Other chronic pain; I11.9 Hypertensive heart disease without heart failure; I25.110 Atherosclerotic heart disease of native coronary artery with unstable angina pectoris; Z79.4 Long term (current) use of insulin; I25.2 Old myocardial infarction; Z82.49 Family history of ischemic heart disease and other diseases of the circulatory system; Z83.3 Family history of diabetes mellitus; Z86.73 Personal history of transient ischemic attack (TIA), and cerebral infarction without residual deficits; Z87.891 Personal history of nicotine dependence; Z88.8 Allergy status to other drugs, medicaments and biological substances; Z91.041 Radiographic dye allergy status; Z91.14 Patient's other noncompliance with medication regimen; Z95.5 Presence of coronary angioplasty implant and graft; Z90.49 Acquired absence of other specified parts of digestive tract; Z91.013 Allergy to seafood; Z88.0 Allergy status to penicillin
CPT/HCPCS: 36415; 71045; 80048; 80053; 82010; 82800; 82947; 82962; 83036; 83880; 84484; 85025; 85610; 85730; 93005; 96374; 96375; G0378; J1650; J2405; J1815; J2270

== ENCOUNTER 2018-09-05 21:41 | Emergency (ER) | payer MEDICAID ==
[~2018-09-05] VITALS: Ht 193 cm; Wt 125.7 kg
[~2018-09-05 21:41] MED LIST changes: +TRAZ-137 PO
--- NOTE | 2018-09-05 21:58 | NUR ---
PT PRESENTED WITH C/O OUT WALKING AROUND CHEST TIGHTNESS APPROX 15 MIN AGO. HX OF GA 9 STENTS PLACED. MONITORS APPLIED, SIDERAILS UP X2, CALL LIGHT WITHIN REACH
[2018-09-05] MEDS ORDERED: NITROGLYCERIN SINGLE TAB 0.4 MG SL ONE (22:16)
[2018-09-05] MEDS: NITROGLYCERIN SINGLE TAB 0.4 MG SL PRN ×2 (22:18→22:35)
--- NOTE | 2018-09-05 22:19 | NUR ---
PT MEDICATED PER MAR
[2018-09-05 22:29] LABS: BASOPHILS # (AUTO) 0.04 x10^3/uL (0-0.1); BASOPHILS % (AUTO) 0 % (0-1); EOSINOPHILS # (AUTO) 0.13 x10^3/uL (0-0.4); EOSINOPHILS % (AUTO) 2 % (1-7); LYMPHOCYTES # (AUTO) 2.02 x10^3/uL (1-3.4); LYMPHOCYTES % (AUTO) 23 % (22-44); MD NO; MEAN CORPUSCULAR HEMOGLOBIN 28.5 pg (27.5-34.5); MEAN CORPUSCULAR HGB CONC 32.7 g/dL (33.2-36.2); MEAN CORPUSCULAR VOLUME 87.2 fL (81-97); MONOCYTES # (AUTO) 0.63 x10^3/uL (0.2-0.8); MONOCYTES % (AUTO) 7 % (2-9); NEUTROPHILS # (AUTO) 6.11 x10^3/uL (1.8-6.8); NEUTROPHILS % (AUTO) 68 % (42-75); PLATELET COUNT 266 x10^3/uL (130-400); RED BLOOD COUNT 4.94 x10^6/uL (4.38-5.82); RED CELL DISTRIBUTION WIDTH 15.2 % (9.4-14.8)
--- NOTE | 2018-09-05 22:37 | NUR ---
PT C/O CONTINUED CP. PT MEDICATED PER MAR
[2018-09-05 23:11] LABS: ALBUMIN 3.5 g/dL (3.4-5.0)
[2018-09-05 23:24] VITALS: BP 155/73
--- NOTE | 2018-09-05 23:24 | NUR ---
PT SITTING UP ON GURNEY, MONITORS IN PLACE, CALL LIGHT WITHIN REACH. AWAITING LAB RESULTS
[2018-09-05 23:34] LABS: ANION GAP 11 mmol/L (5-15); CHLORIDE 102 mmol/L (98-107); CREATININE 1.12 mg/dL (0.7-1.3)
[2018-09-05 23:39] LABS: TROPONIN I 0.227 ng/mL (0.000-0.045)
== END 2018-09-06 00:03 | disposition home or self-care (01) ==
LOC: ED 22:36
DX: R07.89 Other chest pain (principal); E78.5 Hyperlipidemia, unspecified; I25.10 Atherosclerotic heart disease of native coronary artery without angina pectoris; E11.65 Type 2 diabetes mellitus with hyperglycemia; I10 Essential (primary) hypertension; I25.2 Old myocardial infarction; I73.9 Peripheral vascular disease, unspecified; E66.01 Morbid (severe) obesity due to excess calories; Z68.33 Body mass index [BMI] 33.0-33.9, adult; Z90.49 Acquired absence of other specified parts of digestive tract
CPT/HCPCS: 36415; 71045; 80048; 82040; 84484; 85025; 93005; 99284

== ENCOUNTER 2018-11-02 21:16 | Emergency (ER) | payer MEDICAID ==
[~2018-11-02] VITALS: Ht 182.9 cm; Wt 124.0 kg
[2018-11-02 21:18] VITALS: BP 135/87
== END 2018-11-02 23:57 | disposition home or self-care (01) ==
LOC: ED 21:43
DX: T81.89XA Other complications of procedures, not elsewhere classified, initial encounter (principal); E78.5 Hyperlipidemia, unspecified; E11.9 Type 2 diabetes mellitus without complications; I25.10 Atherosclerotic heart disease of native coronary artery without angina pectoris; F32.9 Major depressive disorder, single episode, unspecified; Z86.73 Personal history of transient ischemic attack (TIA), and cerebral infarction without residual deficits; Z72.9 Problem related to lifestyle, unspecified; Z90.49 Acquired absence of other specified parts of digestive tract
CPT/HCPCS: 36415; 82962; 85025; 93971; 99284; Q0162

== ENCOUNTER 2020-05-18 22:56 | Emergency (ER) | payer MEDICAID, OTHER ==
[~2020-05-18] VITALS: Ht 193 cm; Wt 108.0 kg
[~2020-05-18 22:56] MED LIST changes: +AMLO-211 PO; -AMLO10TA8 PO; +LISI1TAB20 PO; +LISI1TAB23 PO; -LISI1TAB3 PO; +LISI1TAB39 PO; -LISI1TAB5 PO; -LISI1TAB7 PO; -LISI40TA PO; +LISI40TA9 PO; -MAGN400T7 PO; +MAGN400T9 PO; -TRAZ-137 PO; +TRAZ-175 PO
[2020-05-18] MEDS ORDERED: SODIUM CHLORIDE FLUSH 10ML SYR IVF ONE (23:00)
[2020-05-18] MEDS ORDERED: GLIP5TAB10 PO (23:29)
[2020-05-18] MEDS ORDERED: ATOR20TA37 PO (23:29)
[2020-05-18] MEDS ORDERED: OMEP-110 PO (23:29)
[2020-05-18] MEDS ORDERED: LISI1TAB23 PO (23:29)
[2020-05-18] MEDS ORDERED: METO50TA82 PO (23:29)
[2020-05-18] MEDS ORDERED: VERA120T13 PO (23:29)
[2020-05-18] MEDS ORDERED: MECO1POW4 PO (23:29)
[2020-05-18] MEDS ORDERED: ISOS40TA17 PO (23:29)
[2020-05-18] MEDS ORDERED: NITROGLYCERIN SINGLE TAB 0.4 MG SL ONE (23:30)
[2020-05-18 23:31] LABS: BASOPHILS % (AUTO) 1 % (0-1); EOSINOPHILS % (AUTO) 2 % (1-7); LYMPHOCYTES % (AUTO) 33 % (22-44); MEAN CORPUSCULAR HEMOGLOBIN 29.1 pg (27.5-34.5); MEAN CORPUSCULAR HGB CONC 34.4 g/dL (33.2-36.2); MONOCYTES % (AUTO) 7 % (2-9); NEUTROPHILS % (AUTO) 56 % (42-75); PLATELET COUNT 209 x10^3/uL (130-400); RED BLOOD COUNT 4.69 x10^6/uL (4.38-5.82); RED CELL DISTRIBUTION WIDTH 14.3 % (9.4-14.8)
[2020-05-18] MEDS: NITROGLYCERIN SINGLE TAB 0.4 MG SL PRN (23:32)
[2020-05-18 23:33] LABS: MD NO
[2020-05-18 23:40] LABS: ALANINE AMINOTRANSFERASE 17 U/L (12-78); ALBUMIN 3.6 g/dL (3.4-5.0); ANION GAP 7 mmol/L (5-15); CALCIUM 8.7 mg/dL (8.5-10.1); CHLORIDE 98 mmol/L (98-107); CREATININE 0.93 mg/dL (0.7-1.3)
--- NOTE | 2020-05-18 23:43 | NUR ---
REPORT FROM TREVON NICOLASSHEAR OPERATOR HELPER OF CARE AT THIS TIME
[2020-05-18 23:44] LABS: ALKALINE PHOSPHATASE 87 U/L (45-117); BILIRUBIN,TOTAL 0.4 mg/dL (0.2-1.0); TOTAL PROTEIN 7.1 g/dL (6.4-8.2); TROPONIN I < 0.015 ng/mL (0.000-0.045)
--- NOTE | 2020-05-18 23:46 | NUR ---
pt in bed with machine milker in place and call light within reach, corrections officers x2 at bedside, bedrails up bilaterally. report given to sami mayers, pt denies need at this time. no signs or symptoms of acute distress noted respirations even and unlabored
[2020-05-18 23:52] VITALS: BP 117/96
== END 2020-05-19 00:20 | disposition home or self-care (01) ==
LOC: ED 23:26
DX: R07.2 Precordial pain (principal); R42 Dizziness and giddiness; R11.0 Nausea; I11.9 Hypertensive heart disease without heart failure; E78.5 Hyperlipidemia, unspecified; E11.9 Type 2 diabetes mellitus without complications; I25.10 Atherosclerotic heart disease of native coronary artery without angina pectoris; R94.31 Abnormal electrocardiogram [ECG] [EKG]; Z90.89 Acquired absence of other organs; Z90.49 Acquired absence of other specified parts of digestive tract; Z98.61 Coronary angioplasty status; Z88.0 Allergy status to penicillin; Z88.6 Allergy status to analgesic agent; Z88.8 Allergy status to other drugs, medicaments and biological substances
CPT/HCPCS: 36415; 71045; 80053; 84484; 85025; 93005; 99285

== ENCOUNTER 2020-08-23 13:41 | Emergency (ER) | payer MEDICAID, OTHER ==
[~2020-08-23] VITALS: Ht 193 cm; Wt 110.0 kg
[~2020-08-23 13:41] MED LIST changes: +ISOS40TA17 PO; +MECO1POW4 PO; +OMEP-110 PO; +VERA120T13 PO
--- NOTE | 2020-08-23 14:12 | NUR ---
ADY CHAVEZ AT BEDSIDE FOR EVAL
[2020-08-23 14:44] LABS: TROPONIN I < 0.015 ng/mL (0.000-0.045)
[2020-08-23 15:00] VITALS: BP 152/68
--- NOTE | 2020-08-23 15:10 | NUR ---
DISCHARGE INSTRUCTIONS REVIEWED
== END 2020-08-23 15:12 | disposition home or self-care (01) ==
LOC: ED 14:00
DX: R07.2 Precordial pain (principal); I10 Essential (primary) hypertension; E11.65 Type 2 diabetes mellitus with hyperglycemia; E78.5 Hyperlipidemia, unspecified; I25.10 Atherosclerotic heart disease of native coronary artery without angina pectoris; I25.2 Old myocardial infarction; Z90.49 Acquired absence of other specified parts of digestive tract
CPT/HCPCS: 36415; 84484; 93005; 99284